=== PATIENT | male | born 1945 | race Caucasian/White ===

== ENCOUNTER 2017-06-29 21:35 | Observation (INO) | payer MEDICARE, OTHER ==
[2017-06-29] MEDS ORDERED: Sodium Chloride 0.9% 1000 ML 1,000 ML IV SCH (21:45)
[2017-06-29] MEDS ORDERED: Sodium Chloride 0.9% 1000 ML 1,000 ML ONE (21:51)
[2017-06-29] MEDS ORDERED: TYLENOL 325 MG PO ONE (22:20)
[2017-06-29 22:26] LABS: BASOPHIL % 0.4 % (0.0-0.4); Eosinophil % 0.8 % (0.00-5.0); Granulocytes % 60.6 % (36.0-66.0); Lymphocytes % 25.1 % (24.0-44.0); Mean Cell Volume 92.2 fl (78-100); Mean Platelet Volume 10.5 fl (6-9.5); Monocytes % 13.1 % (0.0-12.0); Platelet Count 219 K/mm3 (150-450); Red Blood Count 3.59 M/mm3 (4.1-5.6); Red Cell Distribution Width 13.9 % (11.5-14.0); White Blood Count 7.2 K/mm3 (4.0-10.5)
[2017-06-29] MEDS ORDERED: TYLENOL 325 MG ONE (22:29)
[2017-06-29 22:45] LABS: INR 1.11 (0.8-3.0); PROTIME 12.5 SECONDS (8.83-12.87)
[2017-06-29 22:48] LABS: PTT 26.7 SECONDS (24.1-36.1)
--- NOTE | 2017-06-29 22:56 | ERPHSYRPT ---
- History of Present Illness Time Seen by Provider: 06/29/17 21:36 Source: patient Exam Limitations: no limitations Patient Subjective Stated Complaint: pt states he has been feeling very weak x3 days, states his balance is off too. Triage Nursing Assessment: pt alert and oriented, asnwers qeustins approp. pt ambulatory with steady gait noted. skin aguilar, hot, and dry. respirations nonlabored with lugns cta. heart rate 75 on monitor, sinus rhythm. Physician History: FOR THE PAST 3 DAYS PT HAS HAD A HEADACHE, GENERALIZED WEAKNESS, SUBJECTIVE FEVER, CHILLS, DIZZINESS(OFF BALANCE) AND ABDOMINAL PAIN WITH MOVEMENT. PT HAS HAD SHORTNESS OF AIR FOR THE PAST 2 WEEKS AND OCCASIONAL COUGH. Allergies/Adverse Reactions: cortisone Allergy (Verified 02/26/16 12:56) Penicillins Allergy (Verified 02/26/16 12:56) Sulfa (Sulfonamide Antibiotics) Allergy (Verified 02/26/16 12:56) Home Medications: Carvedilol 3.125 mg [Coreg 3.125 MG] 3.125 mg PO BIDWM 02/26/16 [History] Evolocumab [Repatha Syringe] 140 mg SQ UD 02/26/16 [History] PANTOPRAZOLE 40 mg Tablet [Protonix 40MG Tablet] 40 mg PO DAILY 02/26/16 [ History] Ramipril 1.25 mg [Altace 1.25 MG] 1.25 mg PO HS 02/26/16 [History] Spironolactone 25 mg [Aldactone 25 MG] 25 mg PO DAILY 02/26/16 [History] Hx Tetanus, Diphtheria Vaccination/Date Given: Yes Hx Influenza Vaccination/Date Given: No Hx Pneumococcal Vaccination/Date Given: No Immunizations Up to Date: Yes - Review of Systems Constitutional: Fever, Chills, Weakness (GENERALIZED) Respiratory: Cough (OCCASIONAL), Dyspnea Cardiac: No Chest Pain Abdominal/Gastrointestinal: Abdominal Pain Neurological: Dizziness, Headache All Other Systems: Reviewed and Negative - Past Medical History Pertinent Past Medical History: Yes Neurological History: No Pertinent History ENT History: No Pertinent History Cardiac History: Coronary Artery Disease Respiratory History: COPD, Pneumonia Endocrine Medical History: No Pertinent History Musculoskeletal History: Fractures GI Medical History: Colitis, Diverticulitis History: No Pertinent History Psycho-Social History: No Pertinent History Male Reproductive Disorders: No Pertinent History - Past Surgical History Past Surgical History: Yes Neuro Surgical History: No Pertinent History Cardiac: CABG, Internal Defibrillator Respiratory: No Pertinent History Gastrointestinal: No Pertinent History Genitourinary: No Pertinent History Musculoskeletal: No Pertinent History Male Surgical History: No Pertinent History Other Surgical History: carpel tunnel/pins to left hand - Social History Smoking Status: Former smoker Exposure to second hand smoke: No Drug Use: none Patient Lives Alone: No - Nursing Vital Signs Nursing Vital Signs: Initial Vital Signs Temperature 102.6 F 06/29/17 22:09 Pulse Rate 73 06/29/17 22:09 Respiratory Rate 18 06/29/17 22:09 Blood Pressure 109/45 06/29/17 22:09 O2 Sat by Pulse Oximetry 95 06/29/17 22:09 Pain Scale Pain Intensity 5 - Physical Exam General Appearance: alert Eye Exam: PERRL/EOMI Ears, Nose, Throat Exam: moist mucous membranes, pharyngeal erythema Neck Exam: normal inspection Respiratory Exam: wheezing (MILD WHEEZING AND RHONCHI OVER POSTERIOR BASES) Cardiovascular Exam: regular rate/rhythm Gastrointestinal/Abdomen Exam: soft, normal bowel sounds, No tenderness, No guarding Back Exam: normal range of motion Extremity Exam: No inflammation Neurologic Exam: alert, cooperative Skin Exam: warm, dry SpO2 Interpretation: normal SpO2: 96 Oxygen Delivery: Room Air - Course Nursing assessment & vital signs reviewed: Yes EKG Interpreted by Me: RATE (72), Sinus Rhythm, NORMAL AXIS, NORMAL INTERVALS - Radiology Exams Chest X-ray Interpretation: Interpreted by me (RLL INFILTRATE) - CT Exams Abdomen/Pelvis CT Interpretation: Tele-radiologist Report (INFILTRATES IN THE RIGHT LOWER LOBE LATERALLY. SEE THE REST OF REPORT.) Ordered Tests: Active Orders 24 hr Category Date Time Status Drive [employer] STAT Care 06/29/17 21:44 Active EKG-ER Only STAT Care 06/29/17 21:43 Active IV Insertion STAT Care 06/29/17 21:43 Active Oxygen-ED Only NASAL CANNULA 2 lpm Care 06/29/17 21:43 Active Pulse Oximetry (ED) STAT Care 06/29/17 21:43 Active ABDOMEN AND PELVIS W/0 CONTRAS [CT] Stat Exams 06/29/17 21:46 Ordered CHEST 1 VIEW (PORTABLE) Stat Exams 06/29/17 21:44 Ordered AMYLASE Stat Lab 06/29/17 21:56 Completed BLOOD CULTURE Stat Lab 06/29/17 21:56 Ordered CBC W DIFF Stat Lab 06/29/17 21:56 Completed CMP Stat Lab 06/29/17 21:56 Completed CULTURE, THROAT Stat Lab 06/29/17 22:09 Received CULTURE,SPUTUM Stat Lab 06/29/17 23:05 Uncollected LIPASE Stat Lab 06/29/17 21:56 Completed MAGNESIUM Stat Lab 06/29/17 21:56 Completed [place] Screen Stat Lab 06/29/17 21:56 Completed NT PRO BNP Stat Lab 06/29/17 21:56 Completed PROTIME WITH INR Stat Lab 06/29/17 21:56 Completed PTT Stat Lab 06/29/17 21:56 Completed STREP SCREEN-BETA A Stat Lab 06/29/17 22:09 Completed TROPONIN Q3H Lab 06/29/17 21:56 Completed TROPONIN Q3H Lab 06/30/17 00:45 Ordered TROPONIN Q3H Lab 06/30/17 03:45 Ordered TROPONIN Q3H Lab 06/30/17 06:45 Ordered TROPONIN Q3H Lab 06/30/17 09:45 Ordered UA W/RFX UR CULTURE Stat Lab 06/29/17 23:06 Received Respiratory Nebulizer STAT RT 06/29/17 23:06 Active Transfer Order Routine Transfer 06/29/17 Ordered Medication Summary Generic Name Dose Route Start Last Admin Trade Name Freq PRN Reason Stop Dose Admin Sodium Chloride 1,000 mls @ 100 mls/hr 06/29/17 21:45 06/29/17 21:52 Sodium Chloride 0.9% 1000 Ml IV 07/29/17 21:44 100 mls/hr .Q10H HERI Administration Ceftriaxone Sodium/Dextrose 1 g in 50 mls @ 100 mls/hr 06/29/17 23:05 23:17 Rocephin 1 Gm-D5w 50 Ml Bag IV 06/29/17 23:34 100 mls/hr STAT STA Administration Azithromycin 500 mg in 250 mls @ 250 mls/hr 06/29/17 23:05 Zithromax 500 Mg/ 250 Ml Nacl Premix IV 06/30/17 00:04 STAT STA Discontinued Medications Generic Name Dose Route Start Last Admin Trade Name Freq PRN Reason Stop Dose Admin Acetaminophen 650 mg 06/29/17 22:20 06/29/17 22:40 Tylenol 325 Mg PO 06/29/17 22:21 650 mg STAT ONE Administration Acetaminophen Confirm 06/29/17 22:29 Tylenol 325 Mg Administered 06/29/17 22:30 Dose 650 mg .ROUTE .STK-MED ONE Albuterol Sulfate 2.5 mg 06/29/17 23:05 Proventil 2.5 Mg/3 Ml Neb IH 06/29/17 23:06 STAT ONE Azithromycin Confirm 06/29/17 23:13 Zithromax 500 Mg/ 250 Ml Nacl Premix Administered 06/29/17 23:14 Dose 500 mg in 250 mls @ ud IV .STK-MED ONE Ceftriaxone Sodium/Dextrose Confirm 06/29/17 23:13 Rocephin 1 Gm-D5w 50 Ml Bag Administered 06/29/17 23:14 Dose 1 g in 50 mls @ ud IV .STK-MED ONE Lab/Rad Data: Laboratory Result Diagrams 06/29/17 21:56 06/29/17 21:56 Laboratory Results 06/29/17 06/29/17 06/29/17 Range/Units 22:09 21:56 21:56 WBC (4.0-10.5) K/mm3 RBC (4.1-5.6) M/mm3 Hgb (12.5-18.0) gm/dl Hct (42-50) % MCV (78-100) fl MCH (26-32) pg MCHC (32-36) g/dl RDW (11.5-14.0) % Plt Count (150-450) K/mm3 MPV (6-9.5) fl Gran % (36.0-66.0) % Lymphocytes % (24.0-44.0) % Monocytes % (0.0-12.0) % Eosinophils % (0.00-5.0) % Basophils % (0.0-0.4) % Basophils # (0-0.4) INR (0.8-3.0) APTT (24.1-36.1) SECONDS Sodium (136-145) mEq/L Potassium (3.5-5.1) mEq/L Chloride (98-107) mEq/L Carbon Dioxide (21-32) mEq/L Anion Gap (5-15) MEQ/L BUN (9-20) mg/dL Creatinine (0.55-1.30) mg/dl Estimated GFR ML/MIN Glucose (70-110) MG/DL Calcium (8.5-10.1) mg/dL Magnesium (1.8-2.4) mg/dL Total Bilirubin (0.2-1.0) mg/dL AST (15-37) U/L ALT (12-78) U/L Alkaline Phosphatase (46-116) U/L Troponin I < 0.017 (0.000-0.056) ng/ml NT-Pro-B Natriuret Pep (0-125) pg/ml Serum Total Protein (6.4-8.2) gm/dL Albumin (3.4-5.0) g/dL Amylase (25-115) U/L Lipase (73-393) U/L Monoscreen NEGATIVE (Negative) Streptococcus Screen NEGATIVE (Negative) 06/29/17 06/29/17 06/29/17 Range/Units 21:56 21:56 21:56 WBC 7.2 (4.0-10.5) K/mm3 RBC 3.59 L (4.1-5.6) M/mm3 Hgb 10.8 L (12.5-18.0) gm/dl Hct 33.1 L (42-50) % MCV 92.2 (78-100) fl MCH 30.0 (26-32) pg MCHC 32.6 (32-36) g/dl RDW 13.9 (11.5-14.0) % Plt Count 219 (150-450) K/mm3 MPV 10.5 H (6-9.5) fl Gran % 60.6 (36.0-66.0) % Lymphocytes % 25.1 (24.0-44.0) % Monocytes % 13.1 H (0.0-12.0) % Eosinophils % 0.8 (0.00-5.0) % Basophils % 0.4 (0.0-0.4) % Basophils # 0.03 (0-0.4) INR 1.11 (0.8-3.0) APTT 26.7 (24.1-36.1) SECONDS Sodium 134 L (136-145) mEq/L Potassium 3.4 L (3.5-5.1) mEq/L Chloride 98 (98-107) mEq/L Carbon Dioxide 25.1 (21-32) mEq/L Anion Gap 13.8 (5-15) MEQ/L BUN 15 (9-20) mg/dL Creatinine 1.48 H (0.55-1.30) mg/dl Estimated GFR 49 ML/MIN Glucose 127 H (70-110) MG/DL Calcium 8.8 (8.5-10.1) mg/dL Magnesium 1.9 (1.8-2.4) mg/dL Total Bilirubin 0.60 (0.2-1.0) mg/dL AST 21 (15-37) U/L ALT 24 (12-78) U/L Alkaline Phosphatase 57 (46-116) U/L Troponin I (0.000-0.056) ng/ml NT-Pro-B Natriuret Pep 539 H (0-125) pg/ml Serum Total Protein 7.5 (6.4-8.2) gm/dL Albumin 3.5 (3.4-5.0) g/dL Amylase 65 (25-115) U/L Lipase 147 (73-393) U/L Monoscreen (Negative) Streptococcus Screen (Negative) - Progress Discussed with : Ansley (VWB - [id number]) - Departure Time of Disposition: 23:22 Departure Disposition: Observation Clinical Impression: RLL PNEUMONIA, COPD (chronic obstructive pulmonary disease), HYPOKALEMIA, ANEMIA, CAD Condition: Stable Critical Care Time: No Referrals: ANUJ HIGH MD [Primary Care Provider] - Instructions: Chronic Obstructive Pulmonary Disease
[2017-06-29 23:01] LABS: ALBUMIN 3.5 g/dL (3.4-5.0); ANION GAP 13.8 MEQ/L (5-15); BILIRUBIN,TOTAL 0.6 mg/dL (0.2-1.0); Carbon Dioxide 25.1 mEq/L (21-32); MAGNESIUM 1.9 mg/dL (1.8-2.4); Potassium 3.4 mEq/L (3.5-5.1); Total Protein 7.5 gm/dL (6.4-8.2)
[2017-06-29] MEDS ORDERED: ROCEPHIN 1 Gm-D5w 50 ml Bag** 1 G/50 ML IVPB IV STA (23:05)
[2017-06-29] MEDS ORDERED: PROVENTIL 2.5 MG/3 ML NEB IH ONE ×2 (23:05→23:35)
[2017-06-29] MEDS ORDERED: Zithromax 500 MG/ 250 ML NaCl Premix 500 MG/250 ML IVPB IV STA (23:05)
[2017-06-29] MEDS ORDERED: ROCEPHIN 1 Gm-D5w 50 ml Bag** 1 G/50 ML IVPB IV ONE (23:13)
[2017-06-29] MEDS ORDERED: Zithromax 500 MG/ 250 ML NaCl Premix 500 MG/250 ML IVPB IV ONE (23:13)
[2017-06-29 23:51] LABS: Bacteria RARE /HPF (NEGATIVE); Bilirubin NEGATIVE (NEGATIVE); Blood TRACE NON-HEM Ery/ul (0-5); COMPLETE URINE MICROSCOPIC? YES; Collection Type VOID; Glucose NEGATIVE (NEGATIVE); Leukocyte Esterase NEGATIVE (NEGATIVE); WBC 0-2 /HPF (0-5)
[2017-06-29 23:52] LABS: ADD URINE CULTURE? NO (NO)
[2017-06-30] MEDS ORDERED: DILAUDID 2 MG INJECTION IV PRN (00:12)
[2017-06-30] MEDS ORDERED: Sodium Chloride 0.9% 1000 ML 1,000 ML IV SCH (00:12)
[2017-06-30] MEDS ORDERED: PROVENTIL 2.5 MG/3 ML NEB IH PRN (00:12)
[2017-06-30] MEDS ORDERED: Phenergan 25 MG INJ IV PRN (00:12)
[2017-06-30] MEDS ORDERED: POTASSIUM CHLORIDE 20 mEq IN WATER 100ML 20 MEQ/100 ML BAG IV ONE (00:30)
[2017-06-30] MEDS ORDERED: DUONEB 0.5-3 MG/3 ml Neb IH PRN (01:17)
[2017-06-30] MEDS ORDERED: DUONEB 0.5-3 MG/3 ml Neb IH SCH (03:00)
[2017-06-30] MEDS: TYLENOL 325 MG PO PRN ×3 (05:05→23:41)
[2017-06-30 05:39] LABS: BASOPHIL % 0.1 % (0.0-0.4); Eosinophil % 0.8 % (0.00-5.0); Granulocytes % 63.5 % (36.0-66.0); Lymphocytes % 23.8 % (24.0-44.0); Mean Cell Volume 92.2 fl (78-100); Mean Corpuscular Hemoglobin 29.6 pg (26-32); Mean Platelet Volume 10.2 fl (6-9.5); Monocytes % 11.8 % (0.0-12.0); Platelet Count 198 K/mm3 (150-450); Red Blood Count 3.58 M/mm3 (4.1-5.6); Red Cell Distribution Width 13.8 % (11.5-14.0); White Blood Count 7.9 K/mm3 (4.0-10.5)
[2017-06-30 06:20] LABS: ALBUMIN 3.2 g/dL (3.4-5.0); ALKALINE PHOSPHATASE 51 U/L (46-116); ANION GAP 15.9 MEQ/L (5-15); BLOOD UREA NITROGEN 12 mg/dL (9-20); CHLORIDE 103 mEq/L (98-107); Carbon Dioxide 23.1 mEq/L (21-32); Glucose 116 MG/DL (70-110); SGOT/AST 20 U/L (15-37); SGPT/ALT 25 U/L (12-78); SODIUM 138 mEq/L (136-145); Total Protein 7.1 gm/dL (6.4-8.2)
[2017-06-30 06:35] LABS: TROPONIN < 0.017 ng/ml (0.000-0.056)
--- NOTE | 2017-06-30 09:10 | XRAY ---
Indication: Lower abdominal pain. Multiple contiguous axial images obtained through the abdomen and pelvis using oral contrast only as ordered. Comparison: February 27, 2016. Lung bases demonstrates new right lower lobe wedge-shaped airspace opacity without effusion. Heart is not enlarged. Noncontrasted stomach and bowel loops appear nonobstructed. Normal-appearing appendix. Again descending and sigmoid diverticulosis without diverticulitis. No free fluid/air. Gallbladder contracted with now 8mm gallstone. There remains a few scattered tiny mesenteric nodes, possibly mesenteric adenitis. Stable mild calcifications of the aortoiliac vessels with infrarenal 4.2 cm fusiform AAA. Stable 2 cm hepatic hypodense lesion in the periphery of the right lobe, cyst versus hemangioma. Stable calcified splenic granulomas. Remaining liver, gallbladder, pancreas, spleen, adrenal glands, kidneys, ureters, and bladder appear unremarkable for noncontrast exam. Osseous structures intact with mild spinal degenerative changes. Impression: 1. New gallstone. Ultrasound may yield further information if clinically warranted. 2. Stable colonic diverticulosis without diverticulitis. 3. Stable scattered tiny mesenteric nodes possibly mesenteric adenitis. 4. Stable hepatic hypodense lesion, cyst versus hemangioma. CT liver with contrast using hemangioma protocol may yield further information. 5. Infrarenal AAA. 6. Right lower lobe airspace disease. Comment: Preliminary interpretation was made by C. No discrepancy. CTDI 22.03
--- NOTE | 2017-06-30 09:13 | XRAY ---
Indication: Chest pain, fever, short of breath, and cough. Comparison: January 16, 2015. Portable chest demonstrates new right lower lobe infiltrate without consolidation/large effusion. Left lung clear. Heart is not enlarged and again demonstrates previous CABG surgery. New left-sided single lead pacemaker without complications. Bony thorax intact again with mild osteopenia. Impression: New right lower lobe pneumonia.
[2017-06-30] MEDS ORDERED: PROTONIX 40 MG IV IV SCH (10:00)
[2017-06-30] MEDS: FEOSOL 325 MG PO SCH (10:30)
[2017-06-30] MEDS ORDERED: MEDICATION INTERVENTION MC PRN (11:12)
[2017-06-30] MEDS: PLAVIX 75 MG Tablet PO SCH (11:28)
[2017-06-30] MEDS: Aldactone 25 MG PO SCH (11:28)
[2017-06-30] MEDS: Coreg 3.125 MG PO SCH ×2 (11:28→20:49)
[2017-06-30] MEDS: Protonix 40MG Tablet PO SCH (11:28)
--- NOTE | 2017-06-30 12:53 | PCM.HP ---
History of Present Illness - Chief Complaint Chief Complaint: c/o shortness of breath for 2-3 days History of Present Illness: is a 72 year old male.came to ER with c/o worsening of shortness of breath for 2-3 days. feeling very weak. - Review of Systems Constitutional: Lethargy, Malaise, Weakness, No Fever, No Chills Eyes: No Symptoms Ears, Nose, & Throat: No Symptoms Respiratory: Orthopnea, Short Of Breath, No Cough Cardiac: No Chest Pain, No Edema, No Syncope Abdominal/Gastrointestinal: No Abdominal Pain, No Nausea, No Vomiting, No Diarrhea Genitourinary Symptoms: No Dysuria Musculoskeletal: No Back Pain, No Neck Pain Skin: No Rash Neurological: No Dizziness, No Focal Weakness, No Sensory Changes Psychological: No Symptoms Endocrine: No Symptoms Hematologic/Lymphatic: No Symptoms Immunological/Allergic: No Symptoms Medications & Allergies Home Medications: Home Medication List Carvedilol 3.125 mg [Coreg 3.125 MG] 3.125 mg PO BIDWM 02/26/16 [History Confirmed 06/30/17] PANTOPRAZOLE 40 mg Tablet [Protonix 40MG Tablet] 40 mg PO DAILY 02/26/16 [ History Confirmed 06/30/17] Spironolactone 25 mg [Aldactone 25 MG] 25 mg PO DAILY 02/26/16 [History Confirmed 06/30/17] Clopidogrel Bisulfate [Plavix] 75 mg PO DAILY 06/30/17 [History Confirmed ] Sacubitril/Valsartan [Entresto 49 mg-51 mg Tablet] 1 tab PO BID 06/30/17 [ History Confirmed 06/30/17] Allergies/Adverse Reactions: Allergies Allergy/AdvReac Type Severity Reaction Status Date / Time cortisone Allergy Verified 02/26/16 12:56 Penicillins Allergy Verified 02/26/16 12:56 Sulfa (Sulfonamide Allergy Verified 02/26/16 12:56 Antibiotics) - Past Medical History Past Medical History: Yes Neurological History: No Pertinent History ENT History: No Pertinent History Cardiac History: Coronary Artery Disease Respiratory History: COPD, Pneumonia Endocrine Medical History: No Pertinent History Musculoskelatal History: Fractures GI Medical History: Colitis, Diverticulitis History: No Pertinent History Pyscho-Social History: No Pertinent History Male Reproductive Disorders: No Pertinent History - Past Surgical History Past Surgical History: Yes Neuro Surgical History: No Pertinent History Cardiac History: CABG, Internal Defibrillator Respiratory Surgery: No Pertinent History GI Surgical History: No Pertinent History Genitourinary Surgical Hx: No Pertinent History Musculskeletal Surgical Hx: No Pertinent History Male Surgical History: No Pertinent History Other Surgical History: carpel tunnel/pins to left hand - Social History Smoking Status: Former smoker Exposure to second hand smoke: No Alcohol: None Drug Use: none - Physical Exam Vital Signs: Vital Signs - 24 hr Temp Pulse Resp BP Pulse Ox 06/30/17 11:37 65 18 95 06/30/17 11:32 98.2 F 64 18 152/63 95 06/30/17 08:00 18 06/30/17 07:33 64 18 94 L 06/30/17 06:59 99.1 F 66 18 125/58 93 L 06/30/17 04:00 70 18 94 L 06/30/17 01:19 98 F 70 20 102/51 95 06/30/17 01:05 70 18 95 06/30/17 00:12 99.8 F 95 06/29/17 23:43 69 16 129/70 98 06/29/17 23:35 71 19 93 L 06/29/17 23:22 96 06/29/17 22:23 96 06/29/17 22:09 102.6 F 73 18 109/45 95 Oxygen-Last 24 hours O2 Percentage 2 Liters = 28% O2 Percentage 2 Liters = 28% O2 Percentage 2 Liters = 28% O2 Percentage 2 Liters = 28% O2 Percentage 2 Liters = 28% General Appearance: no apparent distress, alert Neurologic Exam: alert, oriented x 3, cooperative, normal mood/affect, nml cerebellar function, nml station & gait, sensation nml, No motor deficits Eye Exam: PERRL/EOMI, eyes nml inspection Ears, Nose, Throat Exam: normal ENT inspection, TMs normal, pharynx normal, moist mucous membranes Neck Exam: normal inspection, non-tender, supple, full range of motion Respiratory Exam: diminished breath sounds, prolonged expirations, crackles/ rales, rhonchi, wheezing, No respiratory distress Cardiovascular Exam: regular rate/rhythm, normal heart sounds, normal peripheral pulses Gastrointestinal/Abdomen Exam: soft, normal bowel sounds, No tenderness, No mass Back Exam: normal inspection, normal range of motion, No CVA tenderness, No vertebral tenderness Extremity Exam: normal inspection, normal range of motion, pelvis stable Skin Exam: normal color, warm, dry, No rash Lymphatic Exam: No adenopathy Results - Labs Lab/Micro Results: Lab Results-Last 24 Hours 06/30/17 06/30/17 06/30/17 Range/Units 05:20 05:20 07:31 WBC 7.9 (4.0-10.5) K/mm3 RBC 3.58 L (4.1-5.6) M/mm3 Hgb 10.6 L (12.5-18.0) gm/dl Hct 33.0 L (42-50) % MCV 92.2 (78-100) fl MCH 29.6 (26-32) pg MCHC 32.1 (32-36) g/dl RDW 13.8 (11.5-14.0) % Plt Count 198 (150-450) K/mm3 MPV 10.2 H (6-9.5) fl Gran % 63.5 (36.0-66.0) % Lymphocytes % 23.8 L (24.0-44.0) % Monocytes % 11.8 (0.0-12.0) % Eosinophils % 0.8 (0.00-5.0) % Basophils % 0.1 (0.0-0.4) % Basophils # 0.01 (0-0.4) Sodium 138 (136-145) mEq/L Potassium 4.0 4.0 (3.5-5.1) mEq/L Chloride 103 (98-107) mEq/L Carbon Dioxide 23.1 (21-32) mEq/L Anion Gap 15.9 H (5-15) MEQ/L BUN 12 (9-20) mg/dL Creatinine 1.12 (0.55-1.30) mg/dl Estimated GFR > 60 ML/MIN Glucose 116 H (70-110) MG/DL Calcium 8.6 (8.5-10.1) mg/dL Total Bilirubin 0.40 (0.2-1.0) mg/dL AST 20 (15-37) U/L ALT 25 (12-78) U/L Alkaline Phosphatase 51 (46-116) U/L Troponin I < 0.017 (0.000-0.056) ng/ml Serum Total Protein 7.1 (6.4-8.2) gm/dL Albumin 3.2 L (3.4-5.0) g/dL - Other Procedures and Tests Respiratory Therapy 06/30/17 01:17 Respiratory Nebulizer PRN Assessment/Plan (1) Pneumonia Current Visit: Yes Status: Acute Qualifiers: Aspiration pneumonia type: unspecified Laterality: right Lung location: lower lobe of lung Code(s): J18.9 - PNEUMONIA, UNSPECIFIED ORGANISM (2) CHF (congestive heart failure), NYHA class IV Current Visit: Yes Status: Chronic Qualifiers: Congestive heart failure type: combined Code(s): I50.9 - HEART FAILURE, UNSPECIFIED (3) Hypokalemia Current Visit: Yes Status: Acute Code(s): E87.6 - HYPOKALEMIA
[2017-06-30] MEDS: PATIENT OWN MEDICATION PO SCH (20:49)
[2017-06-30] MEDS ORDERED: VALSARTAN PO SCH (22:00)
[2017-06-30] MEDS ORDERED: Zithromax 500 MG/ 250 ML NaCl Premix 500 MG/250 ML IVPB IV SCH (22:00)
[2017-06-30] MEDS ORDERED: ROCEPHIN 1 Gm-D5w 50 ml Bag** 1 G/50 ML IVPB IV SCH (22:00)
[2017-06-30] MEDS ORDERED: SACUBITRIL PO SCH (22:00)
[2017-07-01 09:18] LABS: Mean Cell Volume 93.2 fl (78-100); Mean Corpuscular Hemoglobin 29.9 pg (26-32); Platelet Count 221 K/mm3 (150-450); Red Blood Count 3.51 M/mm3 (4.1-5.6); Red Cell Distribution Width 13.7 % (11.5-14.0); White Blood Count 6.3 K/mm3 (4.0-10.5)
[2017-07-01] MEDS: Aldactone 25 MG PO SCH (09:43)
[2017-07-01] MEDS: PATIENT OWN MEDICATION PO SCH (09:43)
[2017-07-01] MEDS: Protonix 40MG Tablet PO SCH (09:43)
[2017-07-01] MEDS: FEOSOL 325 MG PO SCH (09:43)
[2017-07-01] MEDS: Coreg 3.125 MG PO SCH (09:43)
[2017-07-01] MEDS: PLAVIX 75 MG Tablet PO SCH (09:43)
[2017-07-01 09:47] LABS: ALKALINE PHOSPHATASE 51 U/L (46-116); ANION GAP 14.5 MEQ/L (5-15); BLOOD UREA NITROGEN 10 mg/dL (9-20); CHLORIDE 102 mEq/L (98-107); Carbon Dioxide 25.3 mEq/L (21-32); Glucose 153 MG/DL (70-110); Potassium 3.7 mEq/L (3.5-5.1); SGOT/AST 23 U/L (15-37); SGPT/ALT 33 U/L (12-78); SODIUM 138 mEq/L (136-145); Total Protein 6.9 gm/dL (6.4-8.2)
[2017-07-01 11:37] VITALS: BP 120/56; PULSE 66; O2SAT 92
--- NOTE | 2017-07-01 11:57 | PCM.NOTE ---
Date and Time: 07/01/17 1156 Subjective Assessment: doing better - Review of Systems Constitutional: No Fever, No Chills Eyes: No Symptoms Ears, Nose, & Throat: No Symptoms Respiratory: No Cough, No Short Of Breath Cardiac: No Chest Pain, No Edema, No Syncope Abdominal/Gastrointestinal: No Abdominal Pain, No Nausea, No Vomiting, No Diarrhea Genitourinary Symptoms: No Dysuria Musculoskeletal: No Back Pain, No Neck Pain Skin: No Rash Neurological: No Dizziness, No Focal Weakness, No Sensory Changes Psychological: No Symptoms Endocrine: No Symptoms Hematologic/Lymphatic: No Symptoms Immunological/Allergic: No Symptoms Objective Exam General Appearance: no apparent distress, alert Neurologic Exam: alert, oriented x 3, cooperative, normal mood/affect, nml cerebellar function, sensation nml, No motor deficits Skin Exam: normal color, warm, dry Eye Exam: PERRL, EOMI, eyes nml inspection Ears, Nose, Throat Exam: normal ENT inspection, pharynx normal, moist mucous membranes Neck Exam: normal inspection, non-tender, supple, full range of motion Respiratory Exam: normal breath sounds, lungs clear, No respiratory distress Cardiovascular Exam: regular rate/rhythm, normal heart sounds Gastrointestinal/Abdomen Exam: soft, No tenderness, No mass Extremity Exam: normal inspection, normal range of motion Back Exam: normal inspection, normal range of motion, No CVA tenderness, No vertebral tenderness Male Genitalia Exam: deferred Rectal Exam: deferred OBJECTIVE DATA Vital Signs: Vital Signs - 24 hr Temp Pulse Resp BP Pulse Ox 07/01/17 11:36 98.9 F 66 18 120/56 92 L 07/01/17 11:24 18 07/01/17 08:00 18 07/01/17 07:10 98.8 F 67 18 141/69 93 L 07/01/17 04:00 98.0 F 60 19 111/53 94 L 07/01/17 00:12 93 L 07/01/17 00:00 99.3 F 66 18 115/58 95 06/30/17 20:27 63 18 99 06/30/17 20:26 94 L 06/30/17 20:00 17 06/30/17 19:37 98.1 F 50 L 17 115/55 96 06/30/17 16:00 99.0 F 65 18 123/57 94 L 06/30/17 12:00 18 Oxygen-Last 24 hours O2 Percentage 2 Liters = 28% O2 Percentage 2 Liters = 28% O2 Percentage 2 Liters = 28% O2 Percentage 2 Liters = 28% Pain Assessment - Last Documented Pain Intensity 0 Pain Scale Used 0-10 Pain Scale Intake and Output: Intake & Output 06/28/17 06/29/17 06/30/17 07/01/17 11:59 11:59 11:59 11:59 Intake Total 518 1704 Output Total 1750 325 Balance -1232 1379 Weight 85.275 kg Lab Results: Lab Results-Last 24 Hours 07/01/17 07/01/17 Range/Units 09:05 09:05 WBC 6.3 (4.0-10.5) K/mm3 RBC 3.51 L (4.1-5.6) M/mm3 Hgb 10.5 L (12.5-18.0) gm/dl Hct 32.7 L (42-50) % MCV 93.2 (78-100) fl MCH 29.9 (26-32) pg MCHC 32.1 (32-36) g/dl RDW 13.7 (11.5-14.0) % Plt Count 221 (150-450) K/mm3 MPV 10.0 H (6-9.5) fl Sodium 138 (136-145) mEq/L Potassium 3.7 (3.5-5.1) mEq/L Chloride 102 (98-107) mEq/L Carbon Dioxide 25.3 (21-32) mEq/L Anion Gap 14.5 (5-15) MEQ/L BUN 10 (9-20) mg/dL Creatinine 1.06 (0.55-1.30) mg/dl Estimated GFR > 60 ML/MIN Glucose 153 H (70-110) MG/DL Calcium 8.8 (8.5-10.1) mg/dL Total Bilirubin 0.30 (0.2-1.0) mg/dL AST 23 (15-37) U/L ALT 33 (12-78) U/L Alkaline Phosphatase 51 (46-116) U/L Serum Total Protein 6.9 (6.4-8.2) gm/dL Albumin 3.0 L (3.4-5.0) g/dL Assessment/Plan (1) Pneumonia Current Visit: Yes Status: Acute Qualifiers: Pneumonia type: due to unspecified organism Laterality: right Lung location: lower lobe of lung Qualified Code(s): J18.1 - Lobar pneumonia, unspecified organism Code(s): J18.9 - PNEUMONIA, UNSPECIFIED ORGANISM (2) CHF (congestive heart failure), NYHA class IV Current Visit: Yes Status: Chronic Qualifiers: Congestive heart failure type: combined Code(s): I50.9 - HEART FAILURE, UNSPECIFIED (3) Hypokalemia Current Visit: Yes Status: Acute Code(s): E87.6 - HYPOKALEMIA
== END 2017-07-01 13:40 | disposition home or self-care (01) ==
LOC: ED 21:35 → MED SURG 06-30 00:03
PROVIDERS: ADMIT General Practice; ATTEND General Practice
DX: J18.9 Pneumonia, unspecified organism (principal); I50.9 Heart failure, unspecified; E87.6 Hypokalemia; I25.810 Atherosclerosis of coronary artery bypass graft(s) without angina pectoris; J44.9 Chronic obstructive pulmonary disease, unspecified; R10.9 Unspecified abdominal pain; R06.02 Shortness of breath; Z95.810 Presence of automatic (implantable) cardiac defibrillator; Z79.899 Other long term (current) drug therapy
CPT/HCPCS: 36000; 36415; 71010; 74176; 80053; 81000; 82150; 83690; 83735; 83880; 84132; 84484; 85025; 85027; 85610; 85730; 86308; 87040; 87070; 87430; 87631; 93005; 93041; 93268; 94640; 94760; 96360; 96361; 96365; 99285; G0378; J0456; J0696; J3480; A9270-GY

== ENCOUNTER 2018-04-16 20:47 | Observation (INO) | payer MEDICARE, OTHER ==
[2018-04-16] MEDS ORDERED: DUONEB 0.5-3 MG/3 ml Neb IH ONE ×2 (21:01→21:21)
[2018-04-16] MEDS ORDERED: Sodium Chloride 0.9% 1000 ML 1,000 ML IV STA (21:01)
[2018-04-16] MEDS ORDERED: TYLENOL 325 MG PO ONE (21:05)
--- NOTE | 2018-04-16 21:12 | ERPHSYRPT ---
- History of Present Illness Time Seen by Provider: 04/16/18 21:07 Source: patient Exam Limitations: no limitations Physician History: 72-year-old white male arrives with complaint of cough feels weak symptoms since yesterday. States he's had a productive cough no chest pain. Patient has been on Zithromax since yesterday. Patient states no vomiting positive loose stools. Past medical history includes coronary artery disease, COPD, pneumonia, fractures, colitis, diverticulitis. Past surgical history includes CABG, internal defibrillator. Also with history of carpal tunnel and pins in the left hand. Social history patient is a former smoker. Timing/Duration: yesterday Severity: moderate Modifying Factors: Improves With: medication (patient started Zithromax yesterday). Worsens With: eating, immobilization, movement, rest, acetaminophen , ibuprofen Associated Symptoms: cough, fever, No nausea, No vomiting, No abdominal pain, No heartburn, No diaphoresis, No chills, No chest pain, No headaches, No loss of appetite, No malaise, No rash, No syncope, No seizure, No weakness (he is) Allergies/Adverse Reactions: cortisone Allergy (Verified 02/26/16 12:56) Penicillins Allergy (Verified 02/26/16 12:56) Sulfa (Sulfonamide Antibiotics) Allergy (Verified 02/26/16 12:56) Home Medications: Carvedilol 3.125 mg [Coreg 3.125 MG] 3.125 mg PO BIDWM 02/26/16 [History] PANTOPRAZOLE 40 mg Tablet [Protonix 40MG Tablet] 40 mg PO DAILY 02/26/16 [ History] Spironolactone 25 mg [Aldactone 25 MG] 25 mg PO DAILY 02/26/16 [History] Clopidogrel Bisulfate [Plavix] 75 mg PO DAILY 06/30/17 [History] Sacubitril/Valsartan [Entresto 49 mg-51 mg Tablet] 1 tab PO BID 06/30/17 [ History] Hx Tetanus, Diphtheria Vaccination/Date Given: Yes Hx Influenza Vaccination/Date Given: No Hx Pneumococcal Vaccination/Date Given: No - Review of Systems Constitutional: Fever, Weakness Eyes: No Symptoms Ears, Nose, & Throat: No Symptoms Respiratory: Cough, No Cyanosis, No Dyspnea, No Dyspnea on Exertion (MERAZ), No Stridor, No Wheezing Cardiac: No Chest Pain, No Edema, No Syncope Abdominal/Gastrointestinal: No Abdominal Pain, No Nausea, No Vomiting, No Diarrhea Genitourinary Symptoms: No Dysuria Musculoskeletal: No Back Pain, No Neck Pain Skin: No Rash Neurological: No Dizziness, No Focal Weakness, No Sensory Changes Psychological: No Symptoms Endocrine: No Symptoms All Other Systems: Reviewed and Negative - Past Medical History Pertinent Past Medical History: Yes Neurological History: No Pertinent History ENT History: No Pertinent History Cardiac History: Coronary Artery Disease Respiratory History: COPD, Pneumonia Endocrine Medical History: No Pertinent History Musculoskeletal History: Fractures GI Medical History: Colitis, Diverticulitis History: No Pertinent History Psycho-Social History: No Pertinent History Male Reproductive Disorders: No Pertinent History - Past Surgical History Past Surgical History: Yes Neuro Surgical History: No Pertinent History Cardiac: CABG, Internal Defibrillator Respiratory: No Pertinent History Gastrointestinal: No Pertinent History Genitourinary: No Pertinent History Musculoskeletal: No Pertinent History Male Surgical History: No Pertinent History Other Surgical History: carpel tunnel/pins to left hand - Social History Smoking Status: Former smoker Exposure to second hand smoke: No Drug Use: none Patient Lives Alone: No - Nursing Vital Signs Nursing Vital Signs: Initial Vital Signs Temperature 102.8 F 04/16/18 20:48 Pulse Rate 94 H 04/16/18 20:48 Respiratory Rate 18 04/16/18 20:48 Blood Pressure 132/63 04/16/18 20:48 O2 Sat by Pulse Oximetry 94 L 04/16/18 20:48 Pain Scale Pain Intensity 6 - Physical Exam General Appearance: mild distress Eye Exam: PERRL/EOMI, eyes nml inspection Ears, Nose, Throat Exam: normal ENT inspection, TMs normal, pharynx normal, moist mucous membranes Neck Exam: normal inspection, non-tender, supple, full range of motion Respiratory Exam: diminished breath sounds (lungs mildly diminished) Cardiovascular Exam: regular rate/rhythm, normal heart sounds, normal peripheral pulses Gastrointestinal/Abdomen Exam: soft, normal bowel sounds, No tenderness, No mass Back Exam: normal inspection, normal range of motion, No CVA tenderness, No vertebral tenderness Extremity Exam: normal inspection, normal range of motion, pelvis stable Neurologic Exam: alert, oriented x 3, cooperative, sales account manager II-XII nml as tested, normal mood/affect, nml cerebellar function, nml station & gait, sensation nml, No motor deficits Skin Exam: normal color, warm, dry, No rash Lymphatic Exam: No adenopathy SpO2 Interpretation: normal (94%) SpO2: 94 Oxygen Delivery: Room Air - Course Nursing assessment & vital signs reviewed: Yes EKG Interpreted by Me: RATE (83 bpm), Sinus Rhythm, NORMAL AXIS, Other (EKG: Sinus rhythm, 83 bpm, normal axis, no acute st or t wave changes) Ordered Tests: Active Orders 24 hr Category Date Time Status Manufacturing Recruiter STAT Care 04/16/18 21:02 Active EKG-ER Only STAT Care 04/16/18 21:01 Active IV Insertion STAT Care 04/16/18 21:01 Active Pulse Oximetry (ED) STAT Care 04/16/18 21:01 Active CHEST 1 VIEW (PORTABLE) Stat Exams 04/16/18 21:20 Taken BLOOD CULTURE Stat Lab 04/16/18 21:25 Received CBC W DIFF Stat Lab 04/16/18 21:35 Completed CMP Stat Lab 04/16/18 21:35 Completed CULTURE,SPUTUM Stat Lab 04/16/18 21:03 Uncollected CULTURE,URINE Stat Lab 04/16/18 22:49 Received D-DIMER QUANTITATION Stat Lab 04/16/18 21:35 Completed Lactic Acid Stat Lab 04/16/18 21:45 Completed NT PRO BNP Stat Lab 04/16/18 21:35 Completed PROTIME WITH INR Stat Lab 04/16/18 21:35 Completed PTT Stat Lab 04/16/18 21:35 Completed TROPONIN Q3H Lab 04/16/18 21:35 Completed TROPONIN Q3H Lab 04/17/18 00:15 Ordered TROPONIN Q3H Lab 04/17/18 03:15 Ordered TROPONIN Q3H Lab 04/17/18 06:15 Ordered TROPONIN Q3H Lab 04/17/18 09:15 Ordered UA W/ MICROSCOPIC Stat Lab 04/16/18 22:49 Completed VENOUS BLOOD GAS Stat Lab 04/16/18 21:45 Completed Respiratory Nebulizer STAT RT 04/16/18 21:04 Completed Medication Summary Discontinued Medications Generic Name Dose Route Start Last Admin Trade Name Freq PRN Reason Stop Dose Admin Acetaminophen 650 mg 04/16/18 21:05 04/16/18 21:44 Tylenol 325 Mg PO 04/16/18 21:06 650 mg STAT ONE Administration Acetaminophen Confirm 04/16/18 21:40 Tylenol 325 Mg Administered 04/16/18 21:41 Dose 650 mg .ROUTE .STK-MED ONE Albuterol/Ipratropium 3 ml 04/16/18 21:01 04/16/18 21:58 Duoneb 0.5-3 Mg/3 Ml Neb IH 04/16/18 21:02 3 ml STAT ONE Administration Albuterol/Ipratropium Confirm 04/16/18 21:21 Duoneb 0.5-3 Mg/3 Ml Neb Administered 04/16/18 21:22 Dose 3 ml IH .STK-MED ONE Sodium Chloride 1,000 mls @ 999 mls/hr 04/16/18 21:01 04/16/18 22:54 Sodium Chloride 0.9% 1000 Ml IV 04/16/18 22:01 Infused .Q1H1M STA Infusion Ceftriaxone Sodium/Dextrose 1 g in 50 mls @ 100 mls/hr 04/16/18 21:17 22:52 Rocephin 1 Gm-D5w 50 Ml Bag IV 04/16/18 21:46 Infused STAT STA Infusion Sodium Chloride Confirm 04/16/18 21:40 Sodium Chloride 0.9% 1000 Ml Administered 04/16/18 21:41 Dose 1,000 mls @ ud .ROUTE .STK-MED ONE Ceftriaxone Sodium/Dextrose Confirm 04/16/18 21:40 Rocephin 1 Gm-D5w 50 Ml Bag Administered 04/16/18 21:41 Dose 1 g in 50 mls @ ud IV .STK-MED ONE Lab/Rad Data: Laboratory Result Diagrams 04/16/18 21:35 04/16/18 21:35 Laboratory Results 04/16/18 04/16/18 04/16/18 Range/Units 22:49 21:45 21:35 WBC (4.0-10.5) K/mm3 RBC (4.1-5.6) M/mm3 Hgb (12.5-18.0) gm/dl Hct (42-50) % MCV (78-100) fl MCH (26-32) pg MCHC (32-36) g/dl RDW (11.5-14.0) % Plt Count (150-450) K/mm3 MPV (6-9.5) fl Gran % (36.0-66.0) % Eos # (Auto) (0-0.5) Absolute Lymphs (auto) (1.0-4.6) Absolute Monos (auto) (0.0-1.3) Lymphocytes % (24.0-44.0) % Monocytes % (0.0-12.0) % Eosinophils % (0.00-5.0) % Basophils % (0.0-0.4) % Absolute Granulocytes (1.4-6.9) Basophils # (0-0.4) PT 12.0 (8.83-12.87) SECONDS INR 1.03 (0.8-3.0) APTT 17.9 L (24.1-36.1) SECONDS D-Dimer (215-500) ng/mL pO2/FiO2 Ratio 21.0 % VBG pH 7.44 H (7.32-7.42) VBG pCO2 at Pat Temp 37 L (42-55) mm/Hg VBG pO2 at Pat Temp 28 (25-40) mm/Hg VBG HCO3 25.1 (22-28) meq/L VBG O2 Sat (Isra) 60.4 L (95-100) VBG Base Excess 1.1 (-2.0-2.0) VBG Hemoglobin 12.1 VBG Carboxyhemoglobin 3.1 (0.0-6.9) % T HGB POC Potassium 3.7 (3.5-5.1) Sodium (137-145) mmol/L Potassium (3.5-5.1) mmol/L Chloride (98-107) mmol/L Carbon Dioxide (22-30) mmol/L Anion Gap (5-15) MEQ/L BUN (9-20) mg/dL Creatinine (0.66-1.25) mg/dL Estimated GFR ML/MIN Glucose (74-106) mg/dL Lactic Acid 1.3 (0.4-2.0) Calcium (8.4-10.2) mg/dL Total Bilirubin (0.2-1.3) mg/dL AST (17-59) U/L ALT (0-50) U/L Alkaline Phosphatase (38-126) U/L Troponin I (0.000-0.034) ng/mL NT-Pro-B Natriuret Pep (0-900) pg/mL Serum Total Protein (6.3-8.2) g/dL Albumin (3.5-5.0) g/dL Ur Collection Type VOID Urine Color YELLOW (YELLOW) Urine Appearance CLEAR (CLEAR) Urine pH 6.0 (5-6) Ur Specific [place] 1.010 (1.005-1.025) Urine Protein TRACE (Negative) Urine Ketones NEGATIVE (NEGATIVE) Urine Blood 50 (0-5) Guy/ul Urine Nitrite NEGATIVE (NEGATIVE) Urine Bilirubin NEGATIVE (NEGATIVE) Urine Urobilinogen NORMAL (0-1) mg/dL Ur Leukocyte Esterase NEGATIVE (NEGATIVE) Urine Microscopic RBC 5-10 (0-2) /HPF Ur Epithelial Cells RARE (FEW) /HPF Urine Bacteria RARE (NEGATIVE) /HPF Urine Culture Reflexed YES (NO) Urine Glucose NEGATIVE (NEGATIVE) mg/dL Specimen Received 04/16 2250 04/16/18 04/16/18 04/16/18 Range/Units 21:35 21:35 21:35 WBC (4.0-10.5) K/mm3 RBC (4.1-5.6) M/mm3 Hgb (12.5-18.0) gm/dl Hct (42-50) % MCV (78-100) fl MCH (26-32) pg MCHC (32-36) g/dl RDW (11.5-14.0) % Plt Count (150-450) K/mm3 MPV (6-9.5) fl Gran % (36.0-66.0) % Eos # (Auto) (0-0.5) Absolute Lymphs (auto) (1.0-4.6) Absolute Monos (auto) (0.0-1.3) Lymphocytes % (24.0-44.0) % Monocytes % (0.0-12.0) % Eosinophils % (0.00-5.0) % Basophils % (0.0-0.4) % Absolute Granulocytes (1.4-6.9) Basophils # (0-0.4) PT (8.83-12.87) SECONDS INR (0.8-3.0) APTT (24.1-36.1) SECONDS D-Dimer 1427 H* (215-500) ng/mL pO2/FiO2 Ratio % VBG pH (7.32-7.42) VBG pCO2 at Pat Temp (42-55) mm/Hg VBG pO2 at Pat Temp (25-40) mm/Hg VBG HCO3 (22-28) meq/L VBG O2 Sat (Isra) (95-100) VBG Base Excess (-2.0-2.0) VBG Hemoglobin VBG Carboxyhemoglobin (0.0-6.9) % T HGB POC Potassium (3.5-5.1) Sodium 134 L (137-145) mmol/L Potassium 3.8 (3.5-5.1) mmol/L Chloride 99 (98-107) mmol/L Carbon Dioxide 25 (22-30) mmol/L Anion Gap 14.1 (5-15) MEQ/L BUN 12 (9-20) mg/dL Creatinine 0.95 (0.66-1.25) mg/dL Estimated GFR > 60.0 ML/MIN Glucose 108 H (74-106) mg/dL Lactic Acid (0.4-2.0) Calcium 9.1 (8.4-10.2) mg/dL Total Bilirubin 0.40 (0.2-1.3) mg/dL AST 23 (17-59) U/L ALT 16 (0-50) U/L Alkaline Phosphatase 54 (38-126) U/L Troponin I 0.014 (0.000-0.034) ng/mL NT-Pro-B Natriuret Pep (0-900) pg/mL Serum Total Protein 7.5 (6.3-8.2) g/dL Albumin 4.3 (3.5-5.0) g/dL Ur Collection Type Urine Color (YELLOW) Urine Appearance (CLEAR) Urine pH (5-6) Ur Specific [place] (1.005-1.025) Urine Protein (Negative) Urine Ketones (NEGATIVE) Urine Blood (0-5) Guy/ul Urine Nitrite (NEGATIVE) Urine Bilirubin (NEGATIVE) Urine Urobilinogen (0-1) mg/dL Ur Leukocyte Esterase (NEGATIVE) Urine Microscopic RBC (0-2) /HPF Ur Epithelial Cells (FEW) /HPF Urine Bacteria (NEGATIVE) /HPF Urine Culture Reflexed (NO) Urine Glucose (NEGATIVE) mg/dL Specimen Received 06/14/18 06/14/18 Range/Units 21:35 21:35 WBC 4.5 (4.0-10.5) K/mm3 RBC 4.23 (4.1-5.6) M/mm3 Hgb 12.6 (12.5-18.0) gm/dl Hct 38.0 L (42-50) % MCV 89.8 (78-100) fl MCH 29.8 (26-32) pg MCHC 33.2 (32-36) g/dl RDW 13.7 (11.5-14.0) % Plt Count 53 L (150-450) K/mm3 MPV 11.9 H (6-9.5) fl Gran % 69.1 H (36.0-66.0) % Eos # (Auto) 0.02 (0-0.5) Absolute Lymphs (auto) 0.96 L (1.0-4.6) Absolute Monos (auto) 0.41 (0.0-1.3) Lymphocytes % 21.1 L (24.0-44.0) % Monocytes % 9.0 (0.0-12.0) % Eosinophils % 0.4 (0.00-5.0) % Basophils % 0.4 (0.0-0.4) % Absolute Granulocytes 3.13 (1.4-6.9) Basophils # 0.02 (0-0.4) PT (8.83-12.87) SECONDS INR (0.8-3.0) APTT (24.1-36.1) SECONDS D-Dimer (215-500) ng/mL pO2/FiO2 Ratio % VBG pH (7.32-7.42) VBG pCO2 at Pat Temp (42-55) mm/Hg VBG pO2 at Pat Temp (25-40) mm/Hg VBG HCO3 (22-28) meq/L VBG O2 Sat (Isra) (95-100) VBG Base Excess (-2.0-2.0) VBG Hemoglobin VBG Carboxyhemoglobin (0.0-6.9) % T HGB POC Potassium (3.5-5.1) Sodium (137-145) mmol/L Potassium (3.5-5.1) mmol/L Chloride (98-107) mmol/L Carbon Dioxide (22-30) mmol/L Anion Gap (5-15) MEQ/L BUN (9-20) mg/dL Creatinine (0.66-1.25) mg/dL Estimated GFR ML/MIN Glucose (74-106) mg/dL Lactic Acid (0.4-2.0) Calcium (8.4-10.2) mg/dL Total Bilirubin (0.2-1.3) mg/dL AST (17-59) U/L ALT (0-50) U/L Alkaline Phosphatase (38-126) U/L Troponin I (0.000-0.034) ng/mL NT-Pro-B Natriuret Pep 831 (0-900) pg/mL Serum Total Protein (6.3-8.2) g/dL Albumin (3.5-5.0) g/dL Ur Collection Type Urine Color (YELLOW) Urine Appearance (CLEAR) Urine pH (5-6) Ur Specific [place] (1.005-1.025) Urine Protein (Negative) Urine Ketones (NEGATIVE) Urine Blood (0-5) Guy/ul Urine Nitrite (NEGATIVE) Urine Bilirubin (NEGATIVE) Urine Urobilinogen (0-1) mg/dL Ur Leukocyte Esterase (NEGATIVE) Urine Microscopic RBC (0-2) /HPF Ur Epithelial Cells (FEW) /HPF Urine Bacteria (NEGATIVE) /HPF Urine Culture Reflexed (NO) Urine Glucose (NEGATIVE) mg/dL Specimen Received - Progress Progress: improved Progress Note: 04/16/18 21:12 72-year-old white male with history of coronary artery disease, COPD, pneumonia who has an internal defibrillator and has had a bypass in the past Arrives with complaint of cough since yesterday states he feels weak. Apparently was seen by Dr. High and placed on Zithromax. On physical examination lungs are mildly diminished heart rate is normal no murmur is auscultated. Patient with good perfusion to all extremities Patient does have a temperature of 102 a pulse is 94 respiration 18 blood pressure 132/63. Saturation is 94%. Patient apparently triggers possible sepsis alert. Patient does not appear to be septic he has good perfusion to all extremities blood pressure stable sat is normal. Will go ahead and obtain appropriate labs including CBC CMP venous gas lactate blood cultures urine and urine cultures. Patient does have mildly diminished breath sounds Will give patient a DuoNeb treatment also begin normal saline 1 L. Patient is already on Zithromax. 04/16/18 21:15 Patient does have a listed allergy to penicillin cortisone and sulfa. Patient has had Rocephin without problems in the past. We will consider Rocephin as soon as blood cultures and urine has been drawn. 04/16/18 22:34 Patient's white count 4.5 patient's lactate 1.3 Chemistry essentially normal CBC hemoglobin hematocrit 12.6 and 38 Patient's blood pressure 99/82 heart rate 77 pulse ox 92 good perfusion to all extremities lungs are clear. Chest x-ray no acute disease process noted. Unfortunately patient's d-dimer is elevated at 1427, BNP is 831. Will discuss case with Dr. High or whoever is mortgage loan computation clerk for him. Patient states she doesn't feel much better does not appear to be in acute distress. patient does not appear to be septic he did receive 1 g of ROCEPHIN IV 1 L of normal saline was ordered will hold further normal saline in view of elevated bnp 04/16/18 23:10 04/16/18 23:22 Have discussed case with Dr. High. Planning on placing patient on observation continuing Rocephin and Zithromax DuoNeb. Was considering Lovenox however patient with platelet count of 53. Will hold Lovenox until I have further discussion with Dr. High. 04/16/18 23:25 I've discussed the patient's platelet count with Dr. High will hold off on Lovenox. Will place on IV Rocephin continue Zithromax continue duo neb treatments. Order CTA chest. - Departure Time of Disposition: 23:26 Departure Disposition: Observation Clinical Impression: Bronchitis, Cough, increased d-dimer Fever Qualifiers: Fever type: unspecified Qualified Code(s): R50.9 - Fever, unspecified Condition: Fair Critical Care Time: No Referrals: ANUJ HIGH MD [Primary Care Provider] -
[2018-04-16] MEDS ORDERED: ROCEPHIN 1 Gm-D5w 50 ml Bag** 1 G/50 ML IVPB IV STA (21:17)
[2018-04-16] MEDS ORDERED: Sodium Chloride 0.9% 1000 ML 1,000 ML ONE (21:40)
[2018-04-16] MEDS ORDERED: ROCEPHIN 1 Gm-D5w 50 ml Bag** 1 G/50 ML IVPB IV ONE (21:40)
[2018-04-16] MEDS ORDERED: TYLENOL 325 MG ONE (21:40)
[2018-04-16 21:43] LABS: BASOPHIL % 0.4 % (0.0-0.4); Basophil (Absolute #) 0.02 (0-0.4); Eosinophil % 0.4 % (0.00-5.0); Eosinophil (Absolute #) 0.02 (0-0.5); Granulocyte Absolute (ANC) 3.13 (1.4-6.9); Granulocytes % 69.1 % (36.0-66.0); Hemoglobin 12.6 gm/dl (12.5-18.0); Lymphocyte (Absolute #) 0.96 (1.0-4.6); Lymphocytes % 21.1 % (24.0-44.0); Mean Cell Volume 89.8 fl (78-100); Mean Corpuscular Hemoglobin 29.8 pg (26-32); Mean Corpuscular Hgb Concent. 33.2 g/dl (32-36); Mean Platelet Volume 11.9 fl (6-9.5); Monocyte (Absolute #) 0.41 (0.0-1.3); Platelet Count 53 K/mm3 (150-450); Red Blood Count 4.23 M/mm3 (4.1-5.6); Red Cell Distribution Width 13.7 % (11.5-14.0); White Blood Count 4.5 K/mm3 (4.0-10.5)
[2018-04-16 22:02] LABS: Lactic Acid 1.3 (0.4-2.0); VBG BASE EXCESS 1.1 (-2.0-2.0); VBG CARBOXYHEMOGLOBIN 3.1 % T HGB (0.0-6.9); VBG HCO3- 25.1 meq/L (22-28); VBG HEMOGLOBIN 12.1; VBG O2 SATURATION 60.4 (95-100); VBG POTASSIUM 3.7 (3.5-5.1); VBG pH 7.44 (7.32-7.42)
[2018-04-16 22:04] LABS: ALBUMIN 4.3 g/dL (3.5-5.0); ALKALINE PHOSPHATASE 54 U/L (38-126); ANION GAP 14.1 MEQ/L (5-15); BLOOD UREA NITROGEN 12 mg/dL (9-20); CHLORIDE 99 mmol/L (98-107); Calcium 9.1 mg/dL (8.4-10.2); Carbon Dioxide 25 mmol/L (22-30); Creatinine 1 0.95 mg/dL (0.66-1.25); Glucose 108 mg/dL (74-106); Potassium 3.8 mmol/L (3.5-5.1); SGOT/AST 23 U/L (17-59); SGPT/ALT 16 U/L (0-50); SODIUM 134 mmol/L (137-145); Total Protein 7.5 g/dL (6.3-8.2)
[2018-04-16 22:34] LABS: INR 1.03 (0.8-3.0)
[2018-04-16 22:36] LABS: PTT 17.9 SECONDS (24.1-36.1)
[2018-04-16 23:19] LABS: Appearance CLEAR (CLEAR); Bilirubin NEGATIVE (NEGATIVE); Blood 50 Ery/ul (0-5); Glucose NEGATIVE (NEGATIVE); Ketones NEGATIVE (NEGATIVE); Leukocyte Esterase NEGATIVE (NEGATIVE); Nitrite NEGATIVE (NEGATIVE); Protein,Urine Dip TRACE (Negative); Urobilinogen NORMAL mg/dL (0-1)
[2018-04-16 23:21] LABS: Bacteria RARE /HPF (NEGATIVE); Epithelial Cells RARE /HPF (FEW)
[2018-04-17] MEDS ORDERED: TYLENOL 325 MG PO PRN (00:02)
[2018-04-17] MEDS ORDERED: DUONEB 0.5-3 MG/3 ml Neb IH PRN (00:02)
[2018-04-17 01:26] LABS: Slide Review 1 YES
[2018-04-17] MEDS: Coreg 3.125 MG PO SCH ×3 (01:40→21:31)
[2018-04-17 04:20] LABS: BASOPHIL % 0.3 % (0.0-0.4); Basophil (Absolute #) 0.01 (0-0.4); Eosinophil % 0.6 % (0.00-5.0); Eosinophil (Absolute #) 0.02 (0-0.5); Granulocyte Absolute (ANC) 1.81 (1.4-6.9); Granulocytes % 52.1 % (36.0-66.0); Hematocrit 34.3 % (42-50); Hemoglobin 11.4 gm/dl (12.5-18.0); Lymphocyte (Absolute #) 1.17 (1.0-4.6); Lymphocytes % 33.7 % (24.0-44.0); Mean Cell Volume 90.5 fl (78-100); Mean Corpuscular Hgb Concent. 33.2 g/dl (32-36); Mean Platelet Volume 10.2 fl (6-9.5); Monocyte (Absolute #) 0.46 (0.0-1.3); Monocytes % 13.3 % (0.0-12.0); Platelet Count 171 K/mm3 (150-450); Red Blood Count 3.79 M/mm3 (4.1-5.6); Red Cell Distribution Width 13.8 % (11.5-14.0); White Blood Count 3.5 K/mm3 (4.0-10.5)
[2018-04-17 04:38] LABS: ALBUMIN 3.7 g/dL (3.5-5.0); ALKALINE PHOSPHATASE 45 U/L (38-126); ANION GAP 12.4 MEQ/L (5-15); BLOOD UREA NITROGEN 11 mg/dL (9-20); CHLORIDE 103 mmol/L (98-107); Calcium 8.6 mg/dL (8.4-10.2); Carbon Dioxide 24 mmol/L (22-30); Glucose 113 mg/dL (74-106); Potassium 3.6 mmol/L (3.5-5.1); SGOT/AST 22 U/L (17-59); SGPT/ALT 14 U/L (0-50); SODIUM 136 mmol/L (137-145); Total Protein 6.5 g/dL (6.3-8.2)
[2018-04-17] MEDS ORDERED: GUAIFENESIN PO PRN (06:35)
[2018-04-17] MEDS ORDERED: DEXTROMETHORPHAN PO PRN (06:35)
[2018-04-17] MEDS ORDERED: Robitussin-Dm Syrup PO PRN (06:41)
[2018-04-17] MEDS ORDERED: NON-FORMULARY ITEM (Pitavastatin Calcium [Livalo] 2 MG) PO SCH (06:45)
[2018-04-17] MEDS ORDERED: MEDICATION INTERVENTION MC SCH (06:45)
--- NOTE | 2018-04-17 08:38 | XRAY ---
Indication: Fever and cough. Elevated d-dimer. Multiple contiguous axial images obtained through the chest using 80 cc Isovue 370 contrast and PE protocol. Comparison: None. There is satisfactory opacification of the pulmonary arteries to include the lobar and segmental branches. No filling defect or pulmonary embolus. Heart is not enlarged. Aorta is normal in course and caliber. Previous CABG surgery and left-sided single-lead pacemaker. A few mediastinal and hilar lymph nodes, largest subcarinal measuring 1.5 x 2.3 cm. Examination of the lung parenchyma demonstrates mild diffuse pulmonary emphysema and mild biapical pleural parenchymal fibrosis/scarring. No suspicious pulmonary mass, infiltrate, or effusion. Bony thorax intact with mild degenerative changes throughout the spine and sternotomy hardware. Limited upper abdomen demonstrates fatty liver and subcentimeter gallstone. Impression: 1. Negative pulmonary embolus. 2. Pulmonary emphysema with scattered fibrosis/scarring. 3. Nonspecific prominent subcarinal lymph node. 4. Incidental fatty liver and gallstone. Comment: Preliminary interpretation was made by [facility]. No discrepancy. CT DI 16.94
--- NOTE | 2018-04-17 08:40 | XRAY ---
Indication: Fever and cough. Comparison: August 12, 2017. Portable chest remains hyperinflated and clear. Heart and mediastinal structures are stable and within normal limits again with left-sided single lead pacemaker. Bony thorax intact again with mild degenerative changes and sternotomy hardware. Impression: Stable nonacute hyperinflated chest with chronic features.
--- NOTE | 2018-04-17 09:18 | PCM.HP ---
History of Present Illness - Chief Complaint Chief Complaint: cough and shortness of breath and fever for 2-3 days History of Present Illness: is a 72 year white male arrives with complaint of cough feels weak symptoms since yesterday. States he's had a productive cough no chest pain. Patient has been on Zithromax since yesterday. Patient states no vomiting positive loose stools. - Review of Systems Constitutional: Fever, No Chills Eyes: No Symptoms Ears, Nose, & Throat: No Symptoms Respiratory: No Cough, No Short Of Breath Cardiac: No Chest Pain, No Edema, No Syncope Abdominal/Gastrointestinal: No Abdominal Pain, No Nausea, No Vomiting, No Diarrhea Genitourinary Symptoms: No Dysuria Musculoskeletal: No Back Pain, No Neck Pain Skin: No Rash Neurological: No Dizziness, No Focal Weakness, No Sensory Changes Psychological: No Symptoms Endocrine: No Symptoms Hematologic/Lymphatic: No Symptoms Immunological/Allergic: No Symptoms Medications & Allergies Home Medications: Home Medication List Carvedilol 3.125 mg [Coreg 3.125 MG] 3.125 mg PO BID 02/26/16 [History Confirmed 04/17/18] PANTOPRAZOLE 40 mg Tablet [Protonix 40MG Tablet] 40 mg PO DAILY 02/26/16 [ History Confirmed 04/17/18] Spironolactone 25 mg [Aldactone 25 MG] 12.5 mg PO DAILY 02/26/16 [History Confirmed 04/17/18] Clopidogrel Bisulfate [Plavix] 75 mg PO DAILY 06/30/17 [History Confirmed ] Sacubitril/Valsartan [Entresto 49 mg-51 mg Tablet] 1 tab PO BID 06/30/17 [ History Confirmed 04/17/18] Azithromycin 250 mg [Zithromax 250 MG TABLET] 250 mg PO ZPACK 04/17/18 [ History Confirmed 04/17/18] Guaifenesin/Dextromethorphan [Coricidin Hbp Softgel] 1 each PO TID PRN PRN 04/17 [History Confirmed 04/17/18] Pitavastatin Calcium [Livalo] 2 mg PO UD 04/17/18 [History Confirmed 04/17/18] Allergies/Adverse Reactions: Allergies Allergy/AdvReac Type Severity Reaction Status Date / Time cortisone Allergy Verified 02/26/16 12:56 Penicillins Allergy Verified 02/26/16 12:56 Sulfa (Sulfonamide Allergy Verified 02/26/16 12:56 Antibiotics) - Past Medical History Past Medical History: Yes Neurological History: No Pertinent History ENT History: No Pertinent History Cardiac History: Coronary Artery Disease Respiratory History: COPD, Pneumonia Endocrine Medical History: No Pertinent History Musculoskelatal History: Fractures GI Medical History: Colitis, Diverticulitis History: No Pertinent History Pyscho-Social History: No Pertinent History Male Reproductive Disorders: No Pertinent History - Past Surgical History Past Surgical History: Yes Neuro Surgical History: No Pertinent History Cardiac History: CABG, Internal Defibrillator Respiratory Surgery: No Pertinent History GI Surgical History: No Pertinent History Genitourinary Surgical Hx: No Pertinent History Musculskeletal Surgical Hx: No Pertinent History Male Surgical History: No Pertinent History Other Surgical History: carpel tunnel/pins to left hand - Social History Smoking Status: Former smoker Exposure to second hand smoke: No Alcohol: Rarely Drug Use: none - Physical Exam Vital Signs: Vital Signs - 24 hr Temp Pulse Resp BP Pulse Ox 04/17/18 08:00 20 04/17/18 07:15 67 20 94 L 04/17/18 07:09 101.1 F 70 18 133/67 95 04/17/18 04:00 99.5 F 67 16 111/57 95 04/17/18 01:27 76 18 93 L 04/17/18 00:23 99.5 F 77 18 131/60 94 L 04/16/18 23:40 74 22 120/60 92 L 04/16/18 23:30 94 L 04/16/18 22:50 78 24 112/59 93 L 04/16/18 22:40 78 18 112/59 93 L 04/16/18 22:06 82 21 93 L 04/16/18 21:50 78 21 121/63 93 L 04/16/18 21:38 81 22 121/63 92 L 18 21:36 95 04/16/18 20:52 102.8 F 95 H 20 132/63 94 L 18 20:48 102.8 F 94 H 18 132/63 94 L Oxygen-Last 24 hours O2 Percentage 2 Liters = 28% General Appearance: no apparent distress, alert Neurologic Exam: alert, oriented x 3, cooperative, normal mood/affect, nml cerebellar function, nml station & gait, sensation nml, No motor deficits Eye Exam: PERRL/EOMI, eyes nml inspection Ears, Nose, Throat Exam: normal ENT inspection, TMs normal, pharynx normal, moist mucous membranes Neck Exam: normal inspection, non-tender, supple, full range of motion Respiratory Exam: normal breath sounds, lungs clear, No respiratory distress Cardiovascular Exam: regular rate/rhythm, normal heart sounds, normal peripheral pulses Gastrointestinal/Abdomen Exam: soft, normal bowel sounds, No tenderness, No mass Back Exam: normal inspection, normal range of motion, No CVA tenderness, No vertebral tenderness Extremity Exam: normal inspection, normal range of motion, pelvis stable Skin Exam: normal color, warm, dry, No rash Lymphatic Exam: No adenopathy Results - Labs Lab/Micro Results: Lab Results-Last 24 Hours 04/17/18 04/17/18 04/17/18 Range/Units 00:15 03:20 04:00 WBC 3.5 L (4.0-10.5) K/mm3 RBC 3.79 L (4.1-5.6) M/mm3 Hgb 11.4 L (12.5-18.0) gm/dl Hct 34.3 L (42-50) % MCV 90.5 (78-100) fl MCH 30.0 (26-32) pg MCHC 33.2 (32-36) g/dl RDW 13.8 (11.5-14.0) % Plt Count 171 (150-450) K/mm3 MPV 10.2 H (6-9.5) fl Gran % 52.1 (36.0-66.0) % Eos # (Auto) 0.02 (0-0.5) Absolute Lymphs (auto) 1.17 (1.0-4.6) Absolute Monos (auto) 0.46 (0.0-1.3) Lymphocytes % 33.7 (24.0-44.0) % Monocytes % 13.3 H (0.0-12.0) % Eosinophils % 0.6 (0.00-5.0) % Basophils % 0.3 (0.0-0.4) % Absolute Granulocytes 1.81 (1.4-6.9) Basophils # 0.01 (0-0.4) Sodium (137-145) mmol/L Potassium (3.5-5.1) mmol/L Chloride (98-107) mmol/L Carbon Dioxide (22-30) mmol/L Anion Gap (5-15) MEQ/L BUN (9-20) mg/dL Creatinine (0.66-1.25) mg/dL Estimated GFR ML/MIN Glucose (74-106) mg/dL Calcium (8.4-10.2) mg/dL Total Bilirubin (0.2-1.3) mg/dL AST (17-59) U/L ALT (0-50) U/L Alkaline Phosphatase (38-126) U/L Troponin I 0.018 0.015 (0.000-0.034) ng/mL Serum Total Protein (6.3-8.2) g/dL Albumin (3.5-5.0) g/dL 04/17/18 04/17/18 Range/Units 04:00 06:00 WBC (4.0-10.5) K/mm3 RBC (4.1-5.6) M/mm3 Hgb (12.5-18.0) gm/dl Hct (42-50) % MCV (78-100) fl MCH (26-32) pg MCHC (32-36) g/dl RDW (11.5-14.0) % Plt Count (150-450) K/mm3 MPV (6-9.5) fl Gran % (36.0-66.0) % Eos # (Auto) (0-0.5) Absolute Lymphs (auto) (1.0-4.6) Absolute Monos (auto) (0.0-1.3) Lymphocytes % (24.0-44.0) % Monocytes % (0.0-12.0) % Eosinophils % (0.00-5.0) % Basophils % (0.0-0.4) % Absolute Granulocytes (1.4-6.9) Basophils # (0-0.4) Sodium 136 L (137-145) mmol/L Potassium 3.6 (3.5-5.1) mmol/L Chloride 103 (98-107) mmol/L Carbon Dioxide 24 (22-30) mmol/L Anion Gap 12.4 (5-15) MEQ/L BUN 11 (9-20) mg/dL Creatinine 0.90 (0.66-1.25) mg/dL Estimated GFR > 60.0 ML/MIN Glucose 113 H (74-106) mg/dL Calcium 8.6 (8.4-10.2) mg/dL Total Bilirubin 0.20 (0.2-1.3) mg/dL AST 22 (17-59) U/L ALT 14 (0-50) U/L Alkaline Phosphatase 45 (38-126) U/L Troponin I 0.014 (0.000-0.034) ng/mL Serum Total Protein 6.5 (6.3-8.2) g/dL Albumin 3.7 (3.5-5.0) g/dL - Radiology Impressions Radiology Exams & Impressions: Radiology Procedures Category Date Time Status CHEST WITH CONTRAST [CT] Urgent Exams 04/17/18 02:10 Completed - Other Procedures and Tests Respiratory Therapy 04/17/18 01:27 Respiratory Nebulizer UD 04/17/18 03:54 Oxygen NASAL CANNULA 2 lpm Assessment/Plan (1) Bronchitis Current Visit: Yes Status: Acute Code(s): J40 - BRONCHITIS, NOT SPECIFIED ACUTE OR CHRONIC (2) Cough Current Visit: Yes Status: Acute Code(s): R05 - COUGH (3) Fever Current Visit: Yes Status: Acute Qualifiers: Fever type: unspecified Qualified Code(s): R50.9 - Fever, unspecified Code(s): R50.9 - FEVER, UNSPECIFIED (4) COPD (chronic obstructive pulmonary disease) Current Visit: No Status: Acute (5) CHF (congestive heart failure), NYHA class IV Current Visit: No Status: Chronic Qualifiers: Congestive heart failure type: combined Code(s): I50.9 - HEART FAILURE, UNSPECIFIED
[2018-04-17] MEDS ORDERED: Sodium Chloride 0.9% 1000 ML 1,000 ML IV SCH (09:45)
[2018-04-17] MEDS ORDERED: PATIENT OWN MEDICATION PO SCH ×2 (10:45→20:00)
[2018-04-17] MEDS: solu-MEDROL 40 MG IV SCH ×2 (10:47→18:44)
[2018-04-17] MEDS: Zithromax 500 MG/ 250 ML NaCl Premix 500 MG/250 ML IVPB IV SCH (10:48)
[2018-04-17] MEDS: Protonix 40MG Tablet PO SCH ×2 (11:00→11:03)
[2018-04-17] MEDS: ENTRESTO 49 MG-51 MG TABLET PO SCH ×2 (11:01→21:31)
[2018-04-17] MEDS: Aldactone 25 MG PO SCH (11:01)
[2018-04-17] MEDS: PLAVIX 75 MG Tablet PO SCH (11:01)
[2018-04-17] MEDS ORDERED: Protonix 40MG Tablet PO SCH (22:00)
[2018-04-17] MEDS ORDERED: ROCEPHIN 1 Gm-D5w 50 ml Bag** 1 G/50 ML IVPB IV SCH (22:00)
[2018-04-18] MEDS: solu-MEDROL 40 MG IV SCH ×2 (01:28→08:51)
[2018-04-18] MEDS: Zithromax 500 MG/ 250 ML NaCl Premix 500 MG/250 ML IVPB IV SCH (08:50)
[2018-04-18] MEDS: Aldactone 25 MG PO SCH (08:52)
[2018-04-18] MEDS: PLAVIX 75 MG Tablet PO SCH (08:52)
[2018-04-18] MEDS: Coreg 3.125 MG PO SCH (08:53)
[2018-04-18] MEDS: ENTRESTO 49 MG-51 MG TABLET PO SCH (08:54)
[2018-04-18 13:51] VITALS: O2SAT 93
[2018-04-18 16:49] VITALS: BP 134/62; PULSE 64
--- NOTE | 2018-04-18 20:39 | XRAY ---
Indication: Elevated d-dimer. Two-dimensional sonogram and color Doppler imaging of the major venous vessels of the left and right leg was performed. Comparison: None No thrombus seen in the examined deep venous vessels of the left and right leg including greater saphenous veins. Veins demonstrate normal compressibility. Venous waveforms are normal with and without augmentation. Impression: Left and right legs negative for DVT. Comment: Preliminary report was given.
--- NOTE | 2018-04-23 10:06 | DS ---
DISCHARGE DIAGNOSIS: 1. BRONCHITIS - CLINICALLY IMPROVED. 2. ELEVATED D-DIMER. 3. HISTORY OF HYPERTENSION/CORONARY ARTERY DISEASE. 4. HYPERLIPIDEMIA. 5. HYPOXEMIA. 6. CHRONIC OBSTRUCTIVE PULMONARY DISEASE. HOSPITAL COURSE: Mr. Ochoa is a 72 y/o male with past medical history of hypertension, coronary artery disease, hyperlipidemia, and chronic obstructive pulmonary disease. He had reportedly been treated with PO antibiotics for bronchitis symptoms. However, did continue to have persistence of cough. He presented to Emergency Room with the same. Upon initial evaluation, he was noted to be febrile. EKG showed sinus rhythm, normal axis. Lab work-up had shown unremarkable BMP. CBC was notable for platelets of 53. Venous blood gas showed pH of 7.44. Lactic acid was 1.3. UA showed rare epithelial cells, rare bacteria, presence of 50 blood. D-dimer was elevated. Lovenox was held due to patient's low platelet count. Please refer to Dr. Panchal's H&P for details. Chest x-ray on admission had shown stable nonacute hyperinflated chest with chronic features. CT chest showed negative pulmonary embolus, pulmonary emphysema with scattered fibrosis/scarring, nonspecific prominent subcarinal lymph node, incidental fatty liver and gallstone. Patient was placed on supplemental O2, nebulizations, broad spectrum IV antibiotics, and IV steroids. During his further course, he improved clinically. Patient did have some drop in his O2 saturations during sleeping and ambulation. However, that improved. The rest of his course was essentially, more or less, unremarkable. At the time of this evaluation, he is alert, awake, and comfortable. States his cough has improved significantly. Overall, feels much better. He has been able to ambulate within his room to bathroom. As per patient's family, his kids are in for the weekend of Father's Day tomorrow and he is requesting to be discharged home. He is otherwise feeling better. Denies any other new complaints and wishes to go home. Appears comfortable. VITALS: BP 119/63, heart 65, respiratory rate 19, temperature 97.7, O2 saturation 92% on 2 liters. HEENT: No pallor or icterus noted. NECK: No JVD present. CVS: S1 and S2 present. RESPIRATORY: Breath sounds bilaterally diminished. ABDOMEN: Obese, soft, nontender. NEURO: He is alert and awake. Answers simple questions. EXTREMITIES: Reveals no edema on bilateral lower extremities. LABORATORY DATA: There were no new labs today. Labs from 04/17/18 were reviewed. Blood cultures from 04/16/18 have remained negative X 2. Urine cultures from 04/16/18 have remained negative. Sputum culture from 04/18/18 is pending. Medications were reviewed. ASSESSMENT: As outlined in discharge diagnosis. PLAN: Patient with prior medical history of hypertension, coronary artery disease, and chronic obstructive pulmonary disease was admitted with symptoms of bronchitis which had failed to improve after outpatient treatment. He underwent work-up and treatment as noted. He has improved clinically. Remains hemodynamically stable. Will ambulate patient and check O2 saturations. As per patient's nurse, patient has been not on home O2 and refuses to wear O2 at home. Will ask respiratory therapist to check if patient qualifies for home O2. As noted earlier, patient is insistent on discharge home today. In view of his elevated d-dimer, will obtain stat venous Doppler. If Doppler is negative and patient continues to improve, will likely discharge home later today. Please refer to discharge medication list from 04/18/18 for details of medications on discharge. I have advised patient to start discharge medications as directed and comply with all the recommendations upon discharge. Compliance with diet and medications was stressed. Complete cessation of smoking was stressed. I have advised him to avoid exposure to excessive heat or hot temperatures for prolonged periods. I have advised him to follow-up with Dr. Panchal in office in 1 week or asked him to return to the Emergency Room [facility] if any new signs and symptoms or reappearance of previous signs and symptoms are noted. Please refer to patient's chart, labs, diagnostic work-up results, and consultants notes for details. The patient's clinical condition, work-up results, and plan after discharge as outlined were discussed with patient and family. They seem to be in understanding and agreement. Plan was discussed with patient's nurse, Ai.
== END 2018-04-18 17:35 | disposition home or self-care (01) ==
LOC: ED 20:47 → MED SURG 23:54
PROVIDERS: ADMIT General Practice; ATTEND General Practice
DX: J40 Bronchitis, not specified as acute or chronic (principal); J44.9 Chronic obstructive pulmonary disease, unspecified; I25.10 Atherosclerotic heart disease of native coronary artery without angina pectoris; R09.02 Hypoxemia; E78.5 Hyperlipidemia, unspecified; I50.9 Heart failure, unspecified; Z79.899 Other long term (current) drug therapy; R79.1 Abnormal coagulation profile
CPT/HCPCS: 36000; 36415; 71045; 71260; 80053; 81000; 82805; 83605; 83880; 84484; 85025; 85379; 85610; 85730; 87040; 87070; 87086; 93005; 93041; 93268; 93970; 94150; 94618; 94640; 94760; 94761; 99285; J0456; J0696; J2920; A9270-GY; G0378

== ENCOUNTER 2021-04-17 08:47 | Day surgery (SDC) | payer MEDICARE, OTHER ==
[~2021-04-17 08:47] MED LIST: Ak-Dilate OPHTHALMIC*** 1.065 ML, Cyclogyl 1% OPHTH SOL 5 ML 1.065 ML, GATIFLOXACIN 0.5... OP ONE; BETADINE 5% OPHTHALMIC 30 ML OP ONE; Lactated Ringers 1,000 ML IV SCH; NON-FORMULARY ITEM OP ONE; TETRACAINE 0.5% STERI-UNIT SOL OP ONE; cefUROXime sodium 0.005 GM in Sodium Chloride Flush 30 ML*** 0.5 ML IJ SCH
[2021-04-17] MEDS ORDERED: Zofran 4 MG/2 ML VIAL IV PRN (09:00)
[2021-04-17] MEDS ORDERED: Lactated Ringers 500 ML IV ONE (09:28)
[2021-04-17] MEDS ORDERED: Lactated Ringers 500 ML IV SCH (10:00)
[2021-04-17] MEDS ORDERED: LIDOCAINE HCL 1% 50 MG/5 ML VL PF IJ ONE (10:00)
[2021-04-17] MEDS ORDERED: Epinephrine Preservative Free 1 MG/ML INTRAOP ONE (10:00)
[2021-04-17] MEDS ORDERED: DIPRIVAN 200 MG/20 ML IV ONE (11:27)
[2021-04-17 13:17] VITALS: O2SAT 97
[2021-04-17 13:18] VITALS: BP 120/74; PULSE 58
== END 2021-04-17 12:40 | disposition home or self-care (01) ==
LOC: SDC 08:47
PROVIDERS: ATTEND Ophthalmology
DX: H25.812 Combined forms of age-related cataract, left eye (principal); I10 Essential (primary) hypertension; E78.00 Pure hypercholesterolemia, unspecified; Z86.79 Personal history of other diseases of the circulatory system; Z79.899 Other long term (current) drug therapy
CPT/HCPCS: 99100; C1780; J0171; J2001; J2704; A9270-GY

== ENCOUNTER 2021-05-22 08:22 | Day surgery (SDC) | payer MEDICARE, OTHER ==
[2021-05-22] MEDS ORDERED: Lactated Ringers 1,000 ML IV ONE (08:27)
[2021-05-22] MEDS ORDERED: Epinephrine Preservative Free 1 MG/ML INTRAOP ONE (09:00)
[2021-05-22] MEDS ORDERED: LIDOCAINE HCL 1% 50 MG/5 ML VL PF IJ ONE (09:00)
[2021-05-22] MEDS ORDERED: Zofran 4 MG/2 ML VIAL IV PRN (09:00)
[2021-05-22] MEDS: TETRACAINE 0.5% STERI-UNIT SOL OP ONE ×2 (09:04→09:35)
[2021-05-22] MEDS ORDERED: DIPRIVAN 200 MG/20 ML IV ONE (09:50)
[2021-05-22] MEDS ORDERED: ROBINUL ONE (09:50)
[2021-05-22 11:07] VITALS: O2SAT 98
[2021-05-22 11:08] VITALS: BP 118/55; PULSE 64
== END 2021-05-22 11:15 | disposition home or self-care (01) ==
LOC: SDC 08:22
PROVIDERS: ATTEND Ophthalmology
DX: H25.811 Combined forms of age-related cataract, right eye (principal); I10 Essential (primary) hypertension; I51.9 Heart disease, unspecified; E11.9 Type 2 diabetes mellitus without complications; Z79.899 Other long term (current) drug therapy
CPT/HCPCS: C1780; J0171; J2001; J2704; A9270-GY

== ENCOUNTER 2022-06-27 16:36 | Observation (INO) | payer MEDICARE, OTHER ==
[2022-06-27] MEDS ORDERED: TYLENOL 325 MG ONE (17:09)
[2022-06-27] MEDS: TYLENOL 325 MG PO ONE ×2 (17:14→17:15)
[2022-06-27 18:10] LABS: INFLUENZA A NEGATIVE (NEGATIVE); INFLUENZA B NEGATIVE (NEGATIVE); RESPIRATORY SYNCTIAL VIRUS NEGATIVE (Negative); SARS-CoV-2 Xpert Express NEGATIVE (NEGATIVE)
--- NOTE | 2022-06-27 18:39 | ERPHSYRPT ---
- History of Present Illness Time Seen by Provider: 06/27/22 16:47 Source: patient, family Exam Limitations: no limitations Patient Subjective Stated Complaint: PT states "I AAA stent placement on 06/25/[address] Boyd[address] My sustainability specialist Dr. Lynch. I have not had a bowel movment since the stent was placed and I have had a fever since I have been home." Triage Nursing Assessment: Pt presnted alert and oriented x 3, skin pwd Pt ambulates with an upright steady gait, able to speak in clear full sentences pt resting comfortably on the bed. Physician History: 77-year-old male with history of AAA status post stent placement 2 days ago at [facility], was discharged yesterday presented to the ER with fever since discharge from hospital with a T-max of 102 earlier today, took Tylenol and currently 100.6. Denies any cough or shortness of breath. No chest pain or palpitations. Complaining of mild headache and body aches with bilateral femoral area discomfort and some discomfort in the back but no abdominal pain. Patient had earlier blood work done here which is grossly unremarkable and also has unremarkable chest done today as well. Cultures are pending. No UTI. Timing/Duration: yesterday, constant, gradual onset, worse Fever Severity: moderate Fever Therapy DEVELOPMENT VICE PRESIDENT: Acetaminophen Associated Symptoms: abdominal pain, headache, muscle aches, weakness, No chest pain, No cough, No nausea/vomiting, No rhinorrhea, No shortness of breath, No sore throat, No syncope Allergies/Adverse Reactions: cortisone Allergy (Verified 05/15/21 14:11) Penicillins Allergy (Verified 05/15/21 14:11) [id number]-DtS Reductase Inhibitor Allergy (Verified 06/27/22 23:31) confusion Sulfa (Sulfonamide Antibiotics) Allergy (Verified 05/15/21 14:11) Home Medications: Carvedilol 3.125 mg [Coreg 3.125 MG] 3.125 mg PO BID 02/26/16 [History] PANTOPRAZOLE 40 mg Tablet [Protonix 40MG Tablet] 40 mg PO DAILY 02/26/16 [History] Spironolactone 25 mg [Aldactone 25 MG] 12.5 mg PO DAILY 02/26/16 [History] Clopidogrel Bisulfate [Plavix] 75 mg PO DAILY 06/30/17 [History] Sacubitril/Valsartan [Entresto 49 mg-51 mg Tablet] 1 tab PO BID 06/30/17 [History] Guaifenesin/Dextromethorphan [Coricidin Hbp Chest [place]one-Cough] 1 each PO TID PRN PRN 04/17/18 [History] Cefdinir 300 mg PO DAILY 06/27/22 [History] Hx Tetanus, Diphtheria Vaccination/Date Given: No Hx Influenza Vaccination/Date Given: Yes Hx Pneumococcal Vaccination/Date Given: Yes Immunizations Up to Date: Yes Travel Risk - International Travel Have you traveled outside of the country in past 3 weeks: No - Coronavirus Screening Symptoms: Fever Close contact with a COVID-19 positive Pt in past 14-21 Days: No - Vaccine Status Have you recieved a Covid-19 vaccination: Yes [employer]phalt [employer]ender: Local Eye Site - Vaccination Dates Date of 2cond Vaccination (if applicable): 2020 - Review of Systems Constitutional: Fever, Chills, Fatigue, Weakness Eyes: No Symptoms Ears, Nose, & Throat: No Symptoms Respiratory: No Symptoms Cardiac: No Symptoms Abdominal/Gastrointestinal: No Symptoms Genitourinary Symptoms: No Symptoms Musculoskeletal: Back Pain Skin: No Symptoms Neurological: Headache Psychological: No Symptoms Endocrine: No Symptoms Hematologic/Lymphatic: No Symptoms Immunological/Allergic: No Symptoms - Past Medical History Pertinent Past Medical History: Yes Neurological History: No Pertinent History ENT History: No Pertinent History Cardiac History: Aneurysm, Congestive Heart Failure, Coronary Artery Disease Respiratory History: COPD, Pneumonia Endocrine Medical History: No Pertinent History Musculoskeletal History: Fractures GI Medical History: Colitis, Diverticulitis History: No Pertinent History Psycho-Social History: No Pertinent History Male Reproductive Disorders: No Pertinent History Other Medical History: IBS, hand, ribs fx - Past Surgical History Past Surgical History: Yes Neuro Surgical History: No Pertinent History Cardiac: CABG, Internal Defibrillator Respiratory: No Pertinent History Gastrointestinal: No Pertinent History Genitourinary: No Pertinent History Musculoskeletal: No Pertinent History Male Surgical History: No Pertinent History Other Surgical History: carpel tunnel/pins to left hand - Social History Smoking Status: Former smoker How long have you smoked: 50 years Exposure to second hand smoke: No Drug Use: none Patient Lives Alone: No - Nursing Vital Signs Nursing Vital Signs: Initial Vital Signs Temperature 100.6 F 06/27/22 16:48 Pulse Rate 97 H 06/27/22 16:48 Respiratory Rate 22 06/27/22 16:48 Blood Pressure 136/71 06/27/22 16:48 O2 Sat by Pulse Oximetry 95 06/27/22 16:48 Pain Scale Pain Intensity 0 - Physical Exam General Appearance: no apparent distress, alert Eye Exam: PERRL/EOMI ENT Exam: normal ENT inspection, no apparent trauma, hearing grossly normal, TMs normal Neck Exam: normal inspection, non-tender, supple, full range of motion Respiratory Exam: normal breath sounds, lungs clear Cardiovascular/Chest Exam: normal heart sounds, regular rate/rhythm Gastrointestinal/Abdominal Exam: soft, non tender, no distention, no mass, no guarding, no ecchymosis (No erythema bilateral groins. 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 II-XII nml as tested Skin Exam: normal color SpO2 Interpretation: normal SpO2: 94 O2 Delivery: Room Air Ordered Tests: Medication Summary Discontinued Medications Generic Name Dose Route Start Last Admin Trade Name Freq PRN Reason Stop Dose Admin Acetaminophen 650 mg 06/27/22 17:05 06/27/22 17:15 Acetaminophen 325 Mg Tablet PO 06/27/22 17:06 650 mg STAT ONE Administration Acetaminophen Confirm 06/27/22 17:09 Acetaminophen 325 Mg Tablet Administered 06/27/22 17:10 Dose 650 mg .ROUTE .STK-MED ONE Albuterol/Ipratropium 3 ml 06/27/22 22:11 Ipratropium/Albuterol Sulfate 3 Ml Ampul.Neb IH 07/27/22 22:10 Q4HPRN PRN SHORTNESS OF BREATH/WHEEZING Carvedilol 3.125 mg 06/28/22 11:00 06/28/22 14:54 Carvedilol 3.125 Mg Tablet PO 07/28/22 10:59 3.125 mg BID HERI Administration Cefdinir 300 mg 06/28/22 11:00 06/28/22 14:54 Cefdinir 300 Mg Capsule PO 07/28/22 10:59 300 mg DAILY HERI Administration Clopidogrel Bisulfate 75 mg 06/28/22 11:00 06/28/22 14:51 Clopidogrel Bisulfate 75 Mg Tablet PO 07/28/22 10:59 75 mg DAILY HERI Administration Dicyclomine HCl 10 mg 06/28/22 17:00 Dicyclomine Hcl 20 Mg Tablet PO 07/28/22 16:59 QID HERI Guaifenesin/Dextromethorphan 1 tablet 06/28/22 10:19 Guaifenesin Dm 600mg/30 Mg Tablet PO 07/28/22 10:18 BID PRN PRN COUGH Hydromorphone HCl 1 mg 06/28/22 09:23 06/28/22 09:39 Hydromorphone 1 Mg/1ml Inj 1 Mg/Ml Syringe IV 07/03/22 09:22 1 mg Q4H PRN PRN Administration PAIN Levofloxacin/Dextrose 500 mg in 100 mls @ 100 mls/hr 06/27/22 20:26 06/27/22 21:57 Levofloxacin 500mg/100ml D5w IV 06/27/22 21:25 Infused STAT STA Infusion Levofloxacin/Dextrose Confirm 06/27/22 20:29 Levofloxacin 500mg/100ml D5w Administered 06/27/22 20:30 Dose 500 mg in 100 mls @ ud IV .STK-MED ONE Metronidazole 500 mg in 100 mls @ 200 mls/hr 06/27/22 21:34 06/27/22 21:44 Flagyl 500 Mg Ivpb IV 06/27/22 22:03 200 mls/hr STAT STA 200 mls/hr Administration Metronidazole Confirm 06/27/22 21:43 Flagyl 500 Mg Ivpb Administered 06/27/22 21:44 Dose 500 mg in 100 mls @ ud IV .STK-MED ONE Potassium Chloride/Sodium Chloride 1,000 mls @ 100 mls/hr 06/27/22 22:11 06/28/22 09:21 Sodium Chloride 0.9% W/ 40 Meq Kcl 1000ml IV 07/27/22 22:10 100 mls/hr .Q10H HERI Administration Levofloxacin/Dextrose 500 mg in 100 mls @ 100 mls/hr 06/28/22 22:00 Levofloxacin 500mg/100ml D5w IV 07/28/22 21:59 Q24H22 HERI Metronidazole 500 mg in 100 mls @ 200 mls/hr 06/27/22 23:00 06/28/22 06:11 Flagyl 500 Mg Ivpb IV 07/27/22 22:59 200 mls/hr Q8HRT HERI Administration Sodium Chloride Confirm 06/27/22 23:02 Sodium Chloride 0.9% 1000 Ml Administered 06/27/22 23:03 Dose 1,000 mls @ ud .ROUTE .STK-MED ONE Metronidazole 500 mg in 100 mls @ 200 mls/hr 06/28/22 14:00 06/28/22 14:54 Flagyl 500 Mg Ivpb IV 07/28/22 13:59 Not Given Q8HT HERI Magnesium Citrate 296 ml 06/28/22 14:05 06/28/22 14:54 Magnesium Citrate 296 Ml Solution PO 06/28/22 14:06 296 ml 1XONLY ONE Administration Morphine Sulfate 2 mg 06/27/22 22:11 06/28/22 06:44 Morphine Sulfate 2 Mg/Ml Inj IV 07/02/22 22:10 2 mg Q4H PRN PRN Administration PAIN Ondansetron HCl 4 mg 06/27/22 22:11 06/28/22 04:31 Ondansetron Hcl 4 Mg/2 Ml Vial IV 07/27/22 22:10 4 mg Q6H PRN PRN Administration NAUSEA/VOMITING Ondansetron HCl 4 mg 06/28/22 14:07 Zofran 4 Mg/Udtablet Orally Disintegrating PO 07/28/22 14:06 Q6H PRN PRN NAUSEA/VOMITING Pantoprazole Sodium 40 mg 06/28/22 10:00 06/28/22 09:21 Pantoprazole 40 Mg Vial IV 07/28/22 09:59 40 mg Q24H10 HERI Administration Pantoprazole Sodium 40 mg 06/29/22 10:00 Protonix (Pantoprazole) 40 Mg Tablet PO 07/29/22 09:59 DAILY HERI Sacubitril/Valsartan 1 tablet 06/28/22 11:00 06/28/22 14:54 Sacubitril/Valsartan 1 Tablet Tablet PO 07/28/22 10:59 1 tablet BID HERI Administration Spironolactone 12.5 mg 06/28/22 11:00 06/28/22 14:51 Spironolactone 25 Mg Tablet PO 07/28/22 10:59 12.5 mg DAILY HERI Administration - Progress Progress: improved, re-examined Progress Note: 06/27/22 21:45 77-year-old is evaluated for fever after recent AAA stenting. No significant abdominal pain. Patient has a white count 11 this afternoon and chemistries grossly unremarkable. I have obtained a procalcitonin which is elevated and COVID-19 is negative. Patient has no difficulty breathing. I have discussed with Dr. Jasmine who recommended admission with antibiotics and further work-up. I have obtained CT abdomen pelvis with contrast which showed gallbladder sludging with some pericholecystic fluid with questionable acute cholecystitis. Patient does not have any definite of tenderness in the right upper quadrant. I have given a dose of Levaquin and Flagyl. Patient discussed with , reviewed history, work-up and patient is accepted for admission with ultrasound in the morning and if positive, will obtain general surgery consult. He agreed with admission. Discussed with : Charu, Other Counseled pt/family regarding: lab results, diagnosis, need for follow-up, rad results - Departure Departure Disposition: Observation Clinical Impression: Gallbladder sludge, Postoperative fever Condition: Stable Critical Care Time: No
[2022-06-27] MEDS ORDERED: Levofloxacin 500MG/100ML D5W 500 MG/100 ML BAG IV STA (20:26)
[2022-06-27] MEDS ORDERED: Levofloxacin 500MG/100ML D5W 500 MG/100 ML BAG IV ONE (20:29)
[2022-06-27] MEDS ORDERED: FLAGYL 500 MG IVPB 500 MG/100 ML BAG IV STA (21:34)
[2022-06-27] MEDS ORDERED: FLAGYL 500 MG IVPB 500 MG/100 ML BAG IV ONE (21:43)
[2022-06-27] MEDS ORDERED: Zofran 4 MG/2 ML VIAL IV PRN (22:11)
[2022-06-27] MEDS ORDERED: DUONEB 0.5-3 MG/3 ml Neb IH PRN (22:11)
[2022-06-27] MEDS ORDERED: Sodium Chloride 0.9% 1000 ML 1,000 ML ONE (23:02)
[2022-06-27] MEDS: SODIUM CHLORIDE 0.9% W/ 40 mEq KCL 1000ML 1,000 ML IV SCH (23:07)
[2022-06-27] MEDS: FLAGYL 500 MG IVPB 500 MG/100 ML BAG IV SCH (23:23)
[2022-06-28] MEDS: MORPHINE SULFATE 2 MG INJ IV PRN ×2 (01:57→06:44)
[2022-06-28 05:29] LABS: Absolute Neutrophil Ct (ANC) 6.85 x10^3/uL (1.4-6.9); Basophil (Absolute #) 0.03 x10^3/uL (0-0.4); Eosinophil % 1.6 % (0.00-5.0); Eosinophil (Absolute #) 0.15 x10^3/uL (0-0.5); Hematocrit 31.5 % (42-50); Hemoglobin 10.3 g/dL (12.5-18.0); Lymphocyte (Absolute #) 1.25 x10^3/uL (1.0-4.6); Lymphocytes % 13.6 % (24.0-44.0); Mean Cell Volume 93.8 fL (78-100); Mean Corpuscular Hemoglobin 30.7 pg (26-32); Mean Corpuscular Hgb Concent. 32.7 g/dL (32-36); Mean Platelet Volume 10.3 fL (7.5-11.0); Monocyte (Absolute #) 0.91 x10^3/uL (0.0-1.3); Monocytes % 9.9 % (0.0-12.0); Neutrophil % 74.3 % (36.0-66.0); Platelet Count 141 x10^3/uL (150-450); Red Blood Count 3.36 x10^6/uL (4.1-5.6); Red Cell Distribution Width 13.2 % (11.5-14.0); White Blood Count 9.2 x10^3/uL (4.0-10.5)
[2022-06-28 05:54] LABS: ALBUMIN 3.9 g/dL (3.5-5.0); ALKALINE PHOSPHATASE 53 U/L (38-126); ANION GAP 13.5 MEQ/L (5-15); BLOOD UREA NITROGEN 11 mg/dL (9-20); CHLORIDE 99 mmol/L (98-107); Calcium 8.8 mg/dL (8.4-10.2); Carbon Dioxide 25 mmol/L (22-30); Creatinine 1 1.13 mg/dL (0.66-1.25); EST GLOMERULAR FILTRATION RATE > 60.0 ML/MIN; Glucose 123 mg/dL (74-106); Potassium 4.3 mmol/L (3.5-5.1); SGOT/AST 25 U/L (17-59); SGPT/ALT 16 U/L (0-50); SODIUM 133 mmol/L (137-145); Total Protein 6.8 g/dL (6.3-8.2)
[2022-06-28] MEDS: FLAGYL 500 MG IVPB 500 MG/100 ML BAG IV SCH (06:11)
--- NOTE | 2022-06-28 07:27 | PCM.HP ---
History of Present Illness - Chief Complaint Chief Complaint: fever for 1 day History of Present Illness: is a 77 year old male.with history of AAA status post stent placement 2 days ago at [place], was discharged yesterday presented to the ER with fever since discharge from hospital with a T-max of 102 earlier today, took Tylenol and currently 100.6. Denies any cough or shortness of breath. No chest pain or palpitations. Complaining of mild headache and body aches with bilateral femoral area discomfort and some discomfort in the back but no abdominal pain. Patient had earlier blood work done here which is grossly unremarkable and also has unremarkable chest done today as well. Cultures are pending. No UTI. Timing/Duration: yesterday, constant, gradual onset, worse Fever Severity: moderate Fever Therapy SAND MOLDER: Acetaminophen Associated Symptoms: abdominal pain, headache, muscle aches, weakness, No chest pain, No cough, No nausea/vomiting, No rhinorrhea, No shortness of breath, No sore throat, No syncope - Review of Systems Constitutional: Fever, Chills Eyes: No Symptoms Ears, Nose, & Throat: No Symptoms Respiratory: No Cough, No Short Of Breath Cardiac: No Chest Pain, No Edema, No Syncope Abdominal/Gastrointestinal: Abdominal Pain, No Nausea, No Vomiting, No Diarrhea Genitourinary Symptoms: No Dysuria Musculoskeletal: No Back Pain, No Neck Pain Skin: No Rash Neurological: No Dizziness, No Focal Weakness, No Sensory Changes Psychological: No Symptoms Endocrine: No Symptoms Hematologic/Lymphatic: No Symptoms Immunological/Allergic: No Symptoms Medications & Allergies Home Medications: Home Medication List Carvedilol 3.125 mg [Coreg 3.125 MG] 3.125 mg PO BID 02/26/16 [History Confirmed 06/27/22] PANTOPRAZOLE 40 mg Tablet [Protonix 40MG Tablet] 40 mg PO DAILY 02/26/16 [History Confirmed 06/27/22] Spironolactone 25 mg [Aldactone 25 MG] 12.5 mg PO DAILY 02/26/16 [History Confirmed 06/27/22] Clopidogrel Bisulfate [Plavix] 75 mg PO DAILY 06/30/17 [History Confirmed 06/27/22] Sacubitril/Valsartan [Entresto 49 mg-51 mg Tablet] 1 tab PO BID 06/30/17 [History Confirmed 06/27/22] Guaifenesin/Dextromethorphan [Coricidin Hbp Chest Tyrone-Cough] 1 each PO TID PRN PRN 04/17/18 [History Confirmed 06/27/22] Cefdinir 300 mg PO DAILY 06/27/22 [History Confirmed 06/27/22] Allergies/Adverse Reactions: Allergies Allergy/AdvReac Type Severity Reaction Status Date / Time cortisone Allergy Verified 05/15/21 14:11 Penicillins Allergy Verified 05/15/21 14:11 [place]-NOP-VvB Reductase Allergy Verified 06/27/22 23:31 Inhibitor Sulfa (Sulfonamide Allergy Verified 05/15/21 14:11 Antibiotics) - Past Medical History Past Medical History: Yes Neurological History: No Pertinent History ENT History: No Pertinent History Cardiac History: Aneurysm, Congestive Heart Failure, Coronary Artery Disease Respiratory History: COPD, Pneumonia Endocrine Medical History: No Pertinent History Musculoskelatal History: Fractures GI Medical History: Colitis, Diverticulitis History: No Pertinent History Pyscho-Social History: No Pertinent History Male Reproductive Disorders: No Pertinent History Comment: IBS, hand, ribs fx - Past Surgical History Past Surgical History: Yes Neuro Surgical History: No Pertinent History Cardiac History: CABG, Internal Defibrillator Respiratory Surgery: No Pertinent History GI Surgical History: No Pertinent History Genitourinary Surgical Hx: No Pertinent History Musculskeletal Surgical Hx: No Pertinent History Male Surgical History: No Pertinent History Other Surgical History: carpel tunnel/pins to left hand - Social History Smoking Status: Former smoker How long have you smoked: 50 years Exposure to second hand smoke: No Alcohol: Rarely Drug Use: none - Physical Exam Vital Signs: Vital Signs - 24 hr Temp Pulse Resp BP Pulse Ox 06/28/22 04:00 98.1 F 91 H 20 140/63 92 L 06/27/22 23:05 82 16 90 L 06/27/22 22:30 97.6 F 83 16 122/86 89 L 06/27/22 22:00 83 117/62 91 L 06/27/22 21:47 94 L 06/27/22 21:47 81 18 119/50 92 L 06/27/22 20:00 99.3 F 78 120/64 96 06/27/22 19:03 80 101/59 96 06/27/22 18:21 84 22 120/54 94 L 06/27/22 17:40 87 20 120/53 93 L 06/27/22 16:48 100.6 F 97 H 22 136/71 95 General Appearance: no apparent distress, alert Neurologic Exam: alert, oriented x 3, cooperative, normal mood/affect, nml cerebellar function, nml station & gait, sensation nml, No motor deficits Eye Exam: PERRL/EOMI, eyes nml inspection Ears, Nose, Throat Exam: normal ENT inspection, TMs normal, pharynx normal, moist mucous membranes Neck Exam: normal inspection, non-tender, supple, full range of motion Respiratory Exam: normal breath sounds, lungs clear, No respiratory distress Cardiovascular Exam: regular rate/rhythm, normal heart sounds, normal peripheral pulses Gastrointestinal/Abdomen Exam: soft, normal bowel sounds, No tenderness, No mass Back Exam: normal inspection, normal range of motion, No CVA tenderness, No vertebral tenderness Extremity Exam: normal inspection, normal range of motion, pelvis stable Skin Exam: normal color, warm, dry, No rash Lymphatic Exam: No adenopathy Results - Labs Lab/Micro Results: Lab Results-Last 24 Hours 06/27/22 06/27/22 06/28/22 Range/Units Unknown Unknown 04:25 WBC 9.2 (4.0-10.5) x10^3/uL RBC 3.36 L (4.1-5.6) x10^6/uL Hgb 10.3 L (12.5-18.0) g/dL Hct 31.5 L (42-50) % MCV 93.8 (78-100) fL MCH 30.7 (26-32) pg MCHC 32.7 (32-36) g/dL RDW 13.2 (11.5-14.0) % Plt Count 141 L (150-450) x10^3/uL MPV 10.3 (7.5-11.0) fL Gran % 74.3 H (36.0-66.0) % Immature Gran % (Auto) 0.3 (0.00-0.4) % Nucleat RBC Rel Count 0.0 (0.00-0.1) % Eos # (Auto) 0.15 (0-0.5) x10^3/uL Immature Gran # (Auto) 0.03 (0.00-0.03) x10^3u/L Absolute Lymphs (auto) 1.25 (1.0-4.6) x10^3/uL Absolute Monos (auto) 0.91 (0.0-1.3) x10^3/uL Absolute Nucleated RBC 0.00 (0.00-0.01) x10^3u/L Lymphocytes % 13.6 L (24.0-44.0) % Monocytes % 9.9 (0.0-12.0) % Eosinophils % 1.6 (0.00-5.0) % Basophils % 0.3 (0.0-0.4) % Absolute Granulocytes 6.85 (1.4-6.9) x10^3/uL Basophils # 0.03 (0-0.4) x10^3/uL Sodium (137-145) mmol/L Potassium (3.5-5.1) mmol/L Chloride (98-107) mmol/L Carbon Dioxide (22-30) mmol/L Anion Gap (5-15) MEQ/L BUN (9-20) mg/dL Creatinine (0.66-1.25) mg/dL Estimated GFR ML/MIN Glucose (74-106) mg/dL Calcium (8.4-10.2) mg/dL Total Bilirubin (0.2-1.3) mg/dL AST (17-59) U/L ALT (0-50) U/L Alkaline Phosphatase (38-126) U/L Serum Total Protein (6.3-8.2) g/dL Albumin (3.5-5.0) g/dL Procalcitonin 0.088 H (0.030-0.080) ng/mL Influenza Type A Ag NEGATIVE (NEGATIVE) Influenza Type B Ag NEGATIVE (NEGATIVE) RSV (PCR) NEGATIVE (Negative) SARS-CoV-2 (PCR) NEGATIVE (NEGATIVE) 06/28/22 Range/Units 04:25 WBC (4.0-10.5) x10^3/uL RBC (4.1-5.6) x10^6/uL Hgb (12.5-18.0) g/dL Hct (42-50) % MCV (78-100) fL MCH (26-32) pg MCHC (32-36) g/dL RDW (11.5-14.0) % Plt Count (150-450) x10^3/uL MPV (7.5-11.0) fL Gran % (36.0-66.0) % Immature Gran % (Auto) (0.00-0.4) % Nucleat RBC Rel Count (0.00-0.1) % Eos # (Auto) (0-0.5) x10^3/uL Immature Gran # (Auto) (0.00-0.03) x10^3u/L Absolute Lymphs (auto) (1.0-4.6) x10^3/uL Absolute Monos (auto) (0.0-1.3) x10^3/uL Absolute Nucleated RBC (0.00-0.01) x10^3u/L Lymphocytes % (24.0-44.0) % Monocytes % (0.0-12.0) % Eosinophils % (0.00-5.0) % Basophils % (0.0-0.4) % Absolute Granulocytes (1.4-6.9) x10^3/uL Basophils # (0-0.4) x10^3/uL Sodium 133 L (137-145) mmol/L Potassium 4.3 (3.5-5.1) mmol/L Chloride 99 (98-107) mmol/L Carbon Dioxide 25 (22-30) mmol/L Anion Gap 13.5 (5-15) MEQ/L BUN 11 (9-20) mg/dL Creatinine 1.13 (0.66-1.25) mg/dL Estimated GFR > 60.0 ML/MIN Glucose 123 H (74-106) mg/dL Calcium 8.8 (8.4-10.2) mg/dL Total Bilirubin 1.10 (0.2-1.3) mg/dL AST 25 (17-59) U/L ALT 16 (0-50) U/L Alkaline Phosphatase 53 (38-126) U/L Serum Total Protein 6.8 (6.3-8.2) g/dL Albumin 3.9 (3.5-5.0) g/dL Procalcitonin (0.030-0.080) ng/mL Influenza Type A Ag (NEGATIVE) Influenza Type B Ag (NEGATIVE) RSV (PCR) (Negative) SARS-CoV-2 (PCR) (NEGATIVE) - Radiology Impressions Radiology Exams & Impressions: Radiology Procedures Category Date Time Status ABDOMEN AND PELVIS W CONTRAST [CT] Stat Exams 06/27/22 20:34 Taken GALLBLADDER [US] Stat Exams 06/28/22 08:00 Ordered Assessment/Plan (1) Postoperative fever Current Visit: Yes Status: Acute Assessment & Plan: Chief Complaint Diagnosis Postoperative fever Allergies Allergy/AdvReac Type Severity Reaction Status Date / Time cortisone Allergy Verified 05/15/21 14:11 Penicillins Allergy Verified 05/15/21 14:11 Oxvltir-BOB-BtW Reductase Allergy Verified 06/27/22 23:31 Inhibitor Sulfa (Sulfonamide Allergy Verified 05/15/21 14:11 Antibiotics) Vital Signs (Last 24 hours) Temp Pulse Resp BP Pulse Ox 06/28/22 04:00 98.1 F 91 H 20 140/63 92 L 06/27/22 23:05 82 16 90 L 06/27/22 22:30 97.6 F 83 16 122/86 89 L 06/27/22 22:00 83 117/62 91 L 06/27/22 21:47 94 L 06/27/22 21:47 81 18 119/50 92 L 06/27/22 20:00 99.3 F 78 120/64 96 06/27/22 19:03 80 101/59 96 06/27/22 18:21 84 22 120/54 94 L 06/27/22 17:40 87 20 120/53 93 L 06/27/22 16:48 100.6 F 97 H 22 136/71 95 Home Medications Medication Instructions Recorded Confirmed Last Taken Type Cefdinir 300 mg PO DAILY 06/27/22 06/27/22 06/27/22 History 300 Current Medications Generic Name Dose Route Start Last Admin Trade Name Freq PRN Reason Stop Dose Admin Potassium Chloride/Sodium Chloride 1,000 mls @ 100 mls/hr 06/27/22 22:11 06/27/22 23:07 Sodium Chloride 0.9% W/ 40 Meq Kcl 1000ml IV 07/27/22 22:10 100 mls/hr .Q10H HERI Administration Levofloxacin/Dextrose 500 mg in 100 mls @ 100 mls/hr 06/28/22 22:00 Levofloxacin 500mg/100ml D5w IV 09/25/22 21:59 Q24H22 HERI Metronidazole 500 mg in 100 mls @ 200 mls/hr 06/28/22 14:00 Flagyl 500 Mg Ivpb IV 07/28/22 13:59 Q8HT HERI Morphine Sulfate 2 mg 06/27/22 22:11 06/28/22 06:44 Morphine Sulfate 2 Mg/Ml Inj IV 07/02/22 22:10 2 mg Q4H PRN PRN Administration PAIN Ondansetron HCl 4 mg 06/27/22 22:11 06/28/22 04:31 Ondansetron Hcl 4 Mg/2 Ml Vial IV 07/27/22 22:10 4 mg Q6H PRN PRN Administration NAUSEA/VOMITING Pantoprazole Sodium 40 mg 06/28/22 10:00 Pantoprazole 40 Mg Vial IV 07/28/22 09:59 Q24H10 [facility] Discontinued Medications Generic Name Dose Route Start Last Admin Trade Name Freq PRN Reason Stop Dose Admin Acetaminophen 650 mg 06/27/22 17:05 06/27/22 17:15 Acetaminophen 325 Mg Tablet PO 06/27/22 17:06 650 mg STAT ONE Administration Acetaminophen Confirm 06/27/22 17:09 Acetaminophen 325 Mg Tablet Administered 06/27/22 17:10 Dose 650 mg .ROUTE .STK-MED ONE Albuterol/Ipratropium 3 ml 06/27/22 22:11 Ipratropium/Albuterol Sulfate 3 Ml Ampul.Neb IH 07/27/22 22:10 Q4HPRN PRN SHORTNESS OF BREATH/WHEEZING Levofloxacin/Dextrose 500 mg in 100 mls @ 100 mls/hr 06/27/22 20:26 06/27/22 21:57 Levofloxacin 500mg/100ml D5w IV 06/27/22 21:25 Infused STAT STA Infusion Levofloxacin/Dextrose Confirm 06/27/22 20:29 Levofloxacin 500mg/100ml D5w Administered 06/27/22 20:30 Dose 500 mg in 100 mls @ ud IV .STK-MED ONE Metronidazole 500 mg in 100 mls @ 200 mls/hr 06/27/22 21:34 06/27/22 21:44 Flagyl 500 Mg Ivpb IV 06/27/22 22:03 200 mls/hr STAT STA 200 mls/hr Administration Metronidazole Confirm 06/27/22 21:43 Flagyl 500 Mg Ivpb Administered 06/27/22 21:44 Dose 500 mg in 100 mls @ ud IV .STK-MED ONE Metronidazole 500 mg in 100 mls @ 200 mls/hr 06/27/22 23:00 06/28/22 06:11 Flagyl 500 Mg Ivpb IV 07/27/22 22:59 200 mls/hr Q8HRT HERI Administration Sodium Chloride Confirm 06/27/22 23:02 Sodium Chloride 0.9% 1000 Ml Administered 06/27/22 23:03 Dose 1,000 mls @ ud .ROUTE .STK-MED ONE Intake & Output (Last 24 hours) 06/25/22 06/26/22 06/27/22 06/28/22 11:59 11:59 11:59 11:59 Intake Total 452 Output Total 800 Balance -348 Weight 93 kg Laboratory Results (Last 24 hours) 06/28/22 06/28/22 06/27/22 04:25 04:25 Unknown WBC 9.2 RBC 3.36 L Hgb 10.3 L Hct 31.5 L MCV 93.8 MCH 30.7 MCHC 32.7 RDW 13.2 Plt Count 141 L MPV 10.3 Gran % 74.3 H Immature Gran % (Auto) 0.3 Nucleat RBC Rel Count 0.0 Eos # (Auto) 0.15 Immature Gran # (Auto) 0.03 Absolute Lymphs (auto) 1.25 Absolute Monos (auto) 0.91 Absolute Nucleated RBC 0.00 Lymphocytes % 13.6 L Monocytes % 9.9 Eosinophils % 1.6 Basophils % 0.3 Absolute Granulocytes 6.85 Basophils # 0.03 Sodium 133 L Potassium 4.3 Chloride 99 Carbon Dioxide 25 Anion Gap 13.5 BUN 11 Creatinine 1.13 Estimated GFR > 60.0 Glucose 123 H Calcium 8.8 Total Bilirubin 1.10 AST 25 ALT 16 Alkaline Phosphatase 53 Serum Total Protein 6.8 Albumin 3.9 Procalcitonin Influenza Type A Ag NEGATIVE Influenza Type B Ag NEGATIVE RSV (PCR) NEGATIVE SARS-CoV-2 (PCR) NEGATIVE 06/27/22 Unknown WBC RBC Hgb Hct MCV MCH MCHC RDW Plt Count MPV Gran % Immature Gran % (Auto) Nucleat RBC Rel Count Eos # (Auto) Immature Gran # (Auto) Absolute Lymphs (auto) Absolute Monos (auto) Absolute Nucleated RBC Lymphocytes % Monocytes % Eosinophils % Basophils % Absolute Granulocytes Basophils # Sodium Potassium Chloride Carbon Dioxide Anion Gap BUN Creatinine Estimated GFR Glucose Calcium Total Bilirubin AST ALT Alkaline Phosphatase Serum Total Protein Albumin Procalcitonin 0.088 H Influenza Type A Ag Influenza Type B Ag RSV (PCR) SARS-CoV-2 (PCR) Orders (Last 24 hours) Category Date Time Status Bedrest ROUTINE Activity 06/27/22 22:11 Active Up With Assistance ROUTINE Activity 06/27/22 22:11 Active Code Status Order ROUTINE Care 06/27/22 22:11 Active Fall Protocol Q1H Care 06/27/22 22:11 Active IV Care Q6H Care 06/27/22 22:11 Active NPO (ED) STAT Care 06/27/22 22:11 Active POCT Glucose Check ACHS Care 06/27/22 22:[address] in Observation ROUTINE Care 06/27/22 22:11 Active Man Hose, Apply ROUTINE Care 06/27/22 22:11 Active Weight,Daily 0600 Care 06/27/22 22:11 Active NPO Diet 06/28/22 00:01 Active ABDOMEN AND PELVIS W CONTRAST [CT] Stat Exams 06/27/22 20:34 Taken GALLBLADDER [US] Stat Exams 06/28/22 08:00 Ordered CBC W DIFF AM.LAB Lab 06/28/22 04:25 Completed CMP AM.LAB Lab 06/28/22 04:25 Completed Acetaminophen 325 mg [Tylenol 325 mg] Med 06/27/22 17:09 Discontinued 650 mg .ROUTE .STK-MED ONE Acetaminophen 325 mg [Tylenol 325 mg] Med 06/27/22 17:05 Discontinued 650 mg PO STAT ONE Albuterol/Ipratropium 3ml Neb* [DUONEB 0.5-3 MG/3 ml Med 06/27/22 22:11 Discontinued Neb] 3 ml IH Q4HPRN PRN Levofloxacin [Levofloxacin 500MG/100ML D5W] Med 06/28/22 22:00 Active 500 mg in 100 ml IV Q24H22 Levofloxacin [Levofloxacin 500MG/100ML D5W] Med 06/27/22 20:26 Discontinued 500 mg in 100 ml IV STAT Levofloxacin [Levofloxacin 500MG/100ML D5W] Med 06/27/22 20:29 Discontinued 500 mg in 100 ml IV UD Metronidazole 500 mg Premix [Flagyl 500 mg Ivpb] Med 06/27/22 23:00 Discontinued 500 mg in 100 ml IV Q8HRT Metronidazole 500 mg Premix [Flagyl 500 mg Ivpb] Med 06/28/22 14:00 Active 500 mg in 100 ml IV Q8HT Metronidazole 500 mg Premix [Flagyl 500 mg Ivpb] Med 06/27/22 21:34 Discontinued 500 mg in 100 ml IV STAT Metronidazole 500 mg Premix [Flagyl 500 mg Ivpb] Med 06/27/22 21:43 Discontinued 500 mg in 100 ml IV UD Morphine Sulfate 2 mg Inj Med 06/27/22 22:11 Active 2 mg IV Q4H PRN PRN NaCl 0.9% 1000 ml + KCl 40 Meq [SODIUM CHLORIDE 0.9% W/ Med 06/27/22 22:11 Active 40 mEq KCL 1000ML] 1,000 ml IV 100 mls/hr NaCl 0.9% 1000 ml [Sodium Chloride 0.9% 1000 ML] 1,000 Med 06/27/22 23:02 Discontinued ml .ROUTE UD Ondansetron HCl 4 mg/2 ml [Zofran 4 MG/2 ML VIAL] Med 06/27/22 22:11 Active 4 mg IV Q6H PRN PRN Pantoprazole 40 mg [Protonix 40 mg IV] Med 06/28/22 10:00 Active 40 mg IV Q24H10 Pulse Oximetry .spot check RT 06/27/22 23:31 Completed Respiratory Therapy Assessment ONCE RT 06/27/22 23:28 Completed Code(s): R50.82 - POSTPROCEDURAL FEVER (2) Gallbladder sludge Current Visit: Yes Status: Acute Code(s): K82.8 - OTHER SPECIFIED DISEASES OF GALLBLADDER (3) CHF (congestive heart failure), NYHA class IV Current Visit: No Status: Chronic Code(s): I50.9 - HEART FAILURE, UNSPECIFIED (4) COPD (chronic obstructive pulmonary disease) Current Visit: No Status: Chronic
[2022-06-28] MEDS: SODIUM CHLORIDE 0.9% W/ 40 mEq KCL 1000ML 1,000 ML IV SCH (09:21)
[2022-06-28] MEDS ORDERED: Hydromorphone 1 mg/ml Injection IV PRN (09:23)
--- NOTE | 2022-06-28 09:39 | XRAY ---
Indication: Abdomen/pelvic pain. Low back pain. Status post AAA repair. Multiple contiguous axial images obtained through the abdomen and pelvis using 80 cc Isovue 370 contrast. Comparison: June 29, 2017 Lung bases demonstrates mild bibasilar subsegmental atelectasis/scarring without focal infiltrate or effusion. Heart not enlarged. Noncontrasted stomach and bowel loops appear nonobstructed again with normal appendix and scattered diverticulosis without diverticulitis. Stable small hepatic cyst and tiny splenic calcified granulomas. Gallbladder is now moderately distended with increasing gravel/sludge in the dependent portion and new tiny pericholecystic fluid concerning for cholecystitis. No abnormal biliary distention, walled off fluid collection, or free air. Remaining liver, pancreas, spleen, adrenal glands, kidneys, ureters, and bladder are unremarkable. There remains AAA with new patent aortobiiliac stent grafts. No pathologic retroperitoneal lymphadenopathy. Osseous structures intact again with mild degenerative changes throughout the spine and both hips. Impression: 1. New distended gallbladder with increasing gravel/sludge and new pericholecystic fluid. Rule out cholecystitis. 2. Status post AAA repair with patent aortobiiliac stent graft. No complications. 3. Chronic findings including hepatic cyst, colonic diverticulosis, old granulomatous disease, and chronic bony findings.
[2022-06-28] MEDS ORDERED: PROTONIX 40 MG IV IV SCH (10:00)
[2022-06-28] MEDS ORDERED: GUAIFENESIN PO PRN (10:15)
[2022-06-28] MEDS ORDERED: [UNRECOGNIZED DRUG - OTHER] PO PRN (10:15)
[2022-06-28] MEDS ORDERED: MUCINEX DM 600/30MG PO PRN (10:19)
[2022-06-28] MEDS ORDERED: Aldactone 25 MG PO SCH (11:00)
[2022-06-28] MEDS ORDERED: OMNICEF 300 MG PO SCH (11:00)
[2022-06-28] MEDS ORDERED: ENTRESTO 49 MG-51 MG TABLET PO SCH (11:00)
[2022-06-28] MEDS ORDERED: PLAVIX Tablet PO SCH (11:00)
[2022-06-28] MEDS ORDERED: Coreg 3.125 MG PO SCH (11:00)
[2022-06-28 12:22] VITALS: BP 121/67; PULSE 87
[2022-06-28] MEDS ORDERED: FLAGYL 500 MG IVPB 500 MG/100 ML BAG IV SCH (14:00)
[2022-06-28] MEDS ORDERED: CITROMA 296 ML PO ONE (14:05)
[2022-06-28] MEDS ORDERED: ZOFRAN ODT 4 MG PO PRN (14:07)
[2022-06-28] MEDS ORDERED: BENTYL 20 MG PO SCH (17:00)
[2022-06-28] MEDS ORDERED: Levofloxacin 500MG/100ML D5W 500 MG/100 ML BAG IV SCH (22:00)
[2022-06-29 07:33] VITALS: O2SAT 94
[2022-06-29] MEDS ORDERED: Protonix 40MG Tablet PO SCH (10:00)
[2022-06-29] MEDS ORDERED: NON-FORMULARY ITEM (Cefdinir [Cefdinir] 300 MG Capsule) PO SCH (10:00)
--- NOTE | 2022-07-01 19:43 | PCM.DS ---
Discharge Summary Date of Admission: 06/27/22 22:10 Admitting Physician: ANUJ HIGH Primary Care Provider: ANUJ HIGH Allergies Allergies cortisone Allergy (Verified 05/15/21 14:11) Penicillins Allergy (Verified 05/15/21 14:11) [id number] Reductase Inhibitor Allergy (Verified 06/27/22 23:31) confusion Sulfa (Sulfonamide Antibiotics) Allergy (Verified 05/15/21 14:11) Hospital Summary - Hospital Course Hospital Course: Chief Complaint Diagnosis fever for 1 day Allergies Allergy/AdvReac Type Severity Reaction Status Date / Time cortisone Allergy Verified 05/15/21 14:11 Penicillins Allergy Verified 05/15/21 14:11 [id number] Reductase Allergy Verified 06/27/22 23:31 Inhibitor Sulfa (Sulfonamide Allergy Verified 05/15/21 14:11 Antibiotics) Home Medications Medication Instructions Recorded Confirmed Last Taken Type Cefdinir 300 mg PO DAILY 06/27/22 06/27/22 06/27/22 History 300 Dicyclomine HCl 10 mg PO QID 30 Days #120 tablet 06/28/22 Unknown Rx Dicyclomine HCl 20 mg [Bentyl 10 mg PO QID #0 tablet 06/28/22 Unknown Rx 20 mg] Ondansetron ODT 4 MG [Zofran 4 mg PO Q6H PRN PRN #0 tablet 06/28/22 Unknown Rx Odt 4 mg] Ondansetron ODT 4 MG [Zofran 4 mg PO Q6H PRN PRN 30 Days #28 06/28/22 Unknown Rx Odt 4 mg] tablet levoFLOXacin 250 mg PO DAILY 7 Days #7 tablet 06/28/22 Unknown Rx Current Medications Discontinued Medications Generic Name Dose Route Start Last Admin Trade Name Freq PRN Reason Stop Dose Admin Acetaminophen 650 mg 06/27/22 17:05 06/27/22 17:15 Acetaminophen 325 Mg Tablet PO 06/27/22 17:06 650 mg STAT ONE Administration Acetaminophen Confirm 06/27/22 17:09 Acetaminophen 325 Mg Tablet Administered 06/27/22 17:10 Dose 650 mg .ROUTE .STK-MED ONE Albuterol/Ipratropium 3 ml 06/27/22 22:11 Ipratropium/Albuterol Sulfate 3 Ml Ampul.Neb IH 07/27/22 22:10 Q4HPRN PRN SHORTNESS OF BREATH/WHEEZING Carvedilol 3.125 mg 06/28/22 11:00 06/28/22 14:54 Carvedilol 3.125 Mg Tablet PO 07/28/22 10:59 3.125 mg BID HERI Administration Cefdinir 300 mg 06/28/22 11:00 06/28/22 14:54 Cefdinir 300 Mg Capsule PO 07/28/22 10:59 300 mg DAILY HERI Administration Clopidogrel Bisulfate 75 mg 06/28/22 11:00 06/28/22 14:51 Clopidogrel Bisulfate 75 Mg Tablet PO 07/28/22 10:59 75 mg DAILY HERI Administration Dicyclomine HCl 10 mg 06/28/22 17:00 Dicyclomine Hcl 20 Mg Tablet PO 07/28/22 16:59 QID HERI Guaifenesin/Dextromethorphan 1 tablet 06/28/22 10:19 Guaifenesin Dm 600mg/30 Mg Tablet PO 07/28/22 10:18 BID PRN PRN COUGH Hydromorphone HCl 1 mg 06/28/22 09:23 06/28/22 09:39 Hydromorphone 1 Mg/1ml Inj 1 Mg/Ml Syringe IV 07/03/22 09:22 1 mg Q4H PRN PRN Administration PAIN Levofloxacin/Dextrose 500 mg in 100 mls @ 100 mls/hr 06/27/22 20:26 06/27/22 21:57 Levofloxacin 500mg/100ml D5w IV 06/27/22 21:25 Infused STAT STA Infusion Levofloxacin/Dextrose Confirm 06/27/22 20:29 Levofloxacin 500mg/100ml D5w Administered 06/27/22 20:30 Dose 500 mg in 100 mls @ ud IV .STK-MED ONE Metronidazole 500 mg in 100 mls @ 200 mls/hr 06/27/22 21:34 06/27/22 21:44 Flagyl 500 Mg Ivpb IV 06/27/22 22:03 200 mls/hr STAT STA 200 mls/hr Administration Metronidazole Confirm 06/27/22 21:43 Flagyl 500 Mg Ivpb Administered 06/27/22 21:44 Dose 500 mg in 100 mls @ ud IV .STK-MED ONE Potassium Chloride/Sodium Chloride 1,000 mls @ 100 mls/hr 06/27/22 22:11 06/28/22 09:21 Sodium Chloride 0.9% W/ 40 Meq Kcl 1000ml IV 07/27/22 22:10 100 mls/hr .Q10H HERI Administration Levofloxacin/Dextrose 500 mg in 100 mls @ 100 mls/hr 06/28/22 22:00 Levofloxacin 500mg/100ml D5w IV 07/28/22 21:59 Q24H22 HERI Metronidazole 500 mg in 100 mls @ 200 mls/hr 06/27/22 23:00 06/28/22 06:11 Flagyl 500 Mg Ivpb IV 07/27/22 22:59 200 mls/hr Q8HRT HERI Administration Sodium Chloride Confirm 06/27/22 23:02 Sodium Chloride 0.9% 1000 Ml Administered 06/27/22 23:03 Dose 1,000 mls @ ud .ROUTE .STK-MED ONE Metronidazole 500 mg in 100 mls @ 200 mls/hr 06/28/22 14:00 06/28/22 14:54 Flagyl 500 Mg Ivpb IV 07/28/22 13:59 Not Given Q8HT HERI Magnesium Citrate 296 ml 06/28/22 14:05 06/28/22 14:54 Magnesium Citrate 296 Ml Solution PO 06/28/22 14:06 296 ml 1XONLY ONE Administration Morphine Sulfate 2 mg 06/27/22 22:11 06/28/22 06:44 Morphine Sulfate 2 Mg/Ml Inj IV 07/02/22 22:10 2 mg Q4H PRN PRN Administration PAIN Ondansetron HCl 4 mg 06/27/22 22:11 06/28/22 04:31 Ondansetron Hcl 4 Mg/2 Ml Vial IV 07/27/22 22:10 4 mg Q6H PRN PRN Administration NAUSEA/VOMITING Ondansetron HCl 4 mg 06/28/22 14:07 Zofran 4 Mg/Udtablet Orally Disintegrating PO 07/28/22 14:06 Q6H PRN PRN NAUSEA/VOMITING Pantoprazole Sodium 40 mg 06/28/22 10:00 06/28/22 09:21 Pantoprazole 40 Mg Vial IV 07/28/22 09:59 40 mg Q24H10 HERI Administration Pantoprazole Sodium 40 mg 06/29/22 10:00 Protonix (Pantoprazole) 40 Mg Tablet PO 07/29/22 09:59 DAILY HERI Sacubitril/Valsartan 1 tablet 06/28/22 11:00 06/28/22 14:54 Sacubitril/Valsartan 1 Tablet Tablet PO 07/28/22 10:59 1 tablet BID HERI Administration Spironolactone 12.5 mg 06/28/22 11:00 06/28/22 14:51 Spironolactone 25 Mg Tablet PO 07/28/22 10:59 12.5 mg DAILY HERI Administration Intake & Output (Last 24 hours) 06/29/22 06/30/22 07/01/22 07/02/22 11:59 11:59 11:59 11:59 Intake Total 0 Balance 0 - Vitals & Intake/Output Vital Signs: Vital Signs Temperature 98.7 F 06/28/22 12:00 Pulse Rate 87 06/28/22 12:00 Respiratory Rate 16 06/28/22 12:00 Blood Pressure 121/67 06/28/22 12:00 O2 Sat by Pulse Oximetry 94 L 06/29/22 07:33 Intake & Output: Intake & Output 06/29/22 06/30/22 07/01/22 07/02/22 11:59 11:59 11:59 11:59 Intake Total 0 Balance 0 - Lab Result Diagrams: 06/28/22 04:25 06/28/22 04:25 - Procedures and Test Procedures and Tests throughout Hospitalization: Therapy Orders & Screens 06/27/22 23:28 Respiratory Therapy Assessment ONCE Comment: Diagnosis: Postoperative fever Discharge Exam General Appearance: no apparent distress, alert Neurologic Exam: alert, oriented x 3, cooperative, normal mood/affect, nml cerebellar function, sensation nml, No motor deficits Eye Exam: PERRL, EOMI, eyes nml inspection Ears, Nose, Throat Exam: normal ENT inspection, pharynx normal, moist mucous membranes Neck Exam: normal inspection, non-tender, supple, full range of motion Respiratory Exam: normal breath sounds, lungs clear, No respiratory distress Cardiovascular Exam: regular rate/rhythm, normal heart sounds Gastrointestinal/Abdomen Exam: soft, No tenderness, No mass Male Genitalia Exam: deferred Rectal Exam: deferred Back Exam: normal inspection, normal range of motion, No CVA tenderness, No vertebral tenderness Extremity Exam: normal inspection, normal range of motion Skin Exam: normal color, warm, dry Final Diagnosis/Problem List - Final Discharge Diagnosis/Problem (1) Postoperative fever Status: Resolved Code(s): R50.82 - POSTPROCEDURAL FEVER (2) Gallbladder sludge Status: Acute Assessment & Plan: will consider surgery once cleared by cardiology service Code(s): K82.8 - OTHER SPECIFIED DISEASES OF GALLBLADDER (3) CHF (congestive heart failure), NYHA class IV Status: Chronic Code(s): I50.9 - HEART FAILURE, UNSPECIFIED (4) COPD (chronic obstructive pulmonary disease) Status: Chronic - Discharge Discharge Date: 06/28/22 Disposition: Home, Self-Care Condition: Stable Prescriptions: New Ondansetron ODT 4 MG [Zofran Odt 4 mg] 4 mg PO Q6H PRN PRN 30 Days #28 tablet PRN Reason: Nausea Dicyclomine HCl 10 mg PO QID 30 Days #120 tablet levoFLOXacin 250 mg PO DAILY 7 Days #7 tablet Ondansetron ODT 4 MG [Zofran Odt 4 mg] 4 mg PO Q6H PRN PRN #0 tablet PRN Reason: Nausea/Vomiting Dicyclomine HCl 20 mg [Bentyl 20 mg] 10 mg PO QID #0 tablet Continue Spironolactone 25 mg [Aldactone 25 MG] 12.5 mg PO DAILY Carvedilol 3.125 mg [Coreg 3.125 MG] 3.125 mg PO BID PANTOPRAZOLE 40 mg Tablet [Protonix 40MG Tablet] 40 mg PO DAILY Clopidogrel Bisulfate [Plavix] 75 mg PO DAILY Sacubitril/Valsartan [Entresto 49 mg-51 mg Tablet] 1 tab PO BID Guaifenesin/Dextromethorphan [Coricidin Hbp Chest Tyrone-Cough] 1 each PO TID PRN PRN PRN Reason: Cough Cefdinir 300 mg PO DAILY Instructions: Acute Pain, Adult (DC) Follow up with: ANUJ HIGH MD [Primary Care Provider] - 07/05/22 2:15 pm (PATIENT TO BE SEEN AT [facility]) Forms: Discharge Instructions
== END 2022-06-28 16:13 | disposition home or self-care (01) ==
LOC: ED 16:36 → MED SURG 22:10
PROVIDERS: ADMIT General Practice; ATTEND General Practice
DX: R50.82 Postprocedural fever (principal); K82.8 Other specified diseases of gallbladder; I50.9 Heart failure, unspecified; J44.9 Chronic obstructive pulmonary disease, unspecified; I25.10 Atherosclerotic heart disease of native coronary artery without angina pectoris; Z79.899 Other long term (current) drug therapy; Z20.828 Contact with and (suspected) exposure to other viral communicable diseases
CPT/HCPCS: 0241U; 36000; 36415; 74177; 76705; 80053; 84145; 85025; 93268; 94760; 96360; 96365; 99285; G0378; 71046; 81001; 87040; 96375; J1170; J1956; J2270; J2405; A9270-GY